=== PATIENT | female | born 1955 | race Caucasian/White ===

== ENCOUNTER 2022-06-25 11:24 | Inpatient (IN) ==
--- NOTE | 2022-06-25 12:49 | XRay Report ---
XR chest 2V PA/lateral HISTORY: Shortness of breath. COMPARISON: Chest 10/18/2011. FINDINGS: The lungs are clear. Cardiac silhouette is normal in size. No pleural effusions. No pneumot horax. Prior cholecystectomy. IMPRESSION: No acute process. ACT 112: Negative or not required by law. Electronically signed by: Yves Nolasco M.D. 06/25/2022 12:47 PM
--- NOTE | 2022-06-25 13:00 | ED Triage Note ---
Date of Service June 25, 2022 History of Present Illness This patient was briefly evaluated while in triage. An abbreviated physical exam was performed. This patient is a 66-year-old Female with past medical history of diabetes, COPD who presents to the ED for evaluation of abdominal pain, back and flank pain. Her symptoms started about 3 to 4 days ago with a mid abdominal pain that radiated through to her back and wraps around to her right scapular region. She reports progressively worsening pain bilateral back pain now, with nausea. She states she has pain with movement, but also with deep breathing. She is tried icy hot patches. She rates her pain an 8/10. History of a tubal ligation. She does not have chest pain. She denies any urinary symptoms. Physical Exam GENERAL: Well-appearing albeit uncomfortable 66-year-old female seated in a wheelchair. CARDIOVASCULAR: RRR RESPIRATORY: Inspiratory and expiratory wheezes noted throughout. No accessory muscle use or retraction. ABDOMEN: BS x 4. Mildly tender to palpation throughout, no focal tenderness however. BACK: No skin rashes, ecchymosis or signs of trauma. She has reproducible tenderness to palpation of the lumbar spine in the midline, and in the right scapular region. Initial orders for labs and / or imaging were placed and patient was placed in the waiting area until a bed is available. Please see further documentation for the full ED course.
[2022-06-25] MEDS ORDERED: SODIUM CHLORIDE 0.9% 1000ML 1,000 ML IV SCH ×2 (13:01→18:40)
[2022-06-25 13:32] LABS: Basophils # (auto) 0.07 K/uL (0-0.2); Basophils % (auto) 0.4 %; Eosinophils # (auto) 0.02 K/uL (0-0.50); Eosinophils % (auto) 0.1 %; Hematocrit (blood only) 43.7 % (37.0-47.0); Hemoglobin 15.8 g/dl (12.0-16.0); Immature Granulocytes % (auto) 0.6 %; Lymphocytes # (auto) 1.99 K/uL (1.2-3.4); Lymphocytes % (auto) 11.2 %; Mean Corpuscular Hemoglobin 30.3 pg (25.0-34.0); Mean Corpuscular Hgb Conc 36.2 g/dL (32.0-36.0); Mean Corpuscular Volume 83.9 fL (80.0-100.0); Mean Platelet Volume 9.4 fL (9.4-12.4); Monocytes # (auto) 1.46 K/uL (0.11-0.59); Monocytes % (auto) 8.2 %; Neutrophils # (auto) 14.09 K/uL (1.40-6.50); Neutrophils % (auto) 79.5 %; Platelet Count 384 K/uL (130-400); RDW Coefficient of Variation 11.9 % (11.5-14.5); RDW Standard Deviation 36.1 fL (36.4-46.3); Red Blood Count 5.21 M/uL (4.20-5.40); White Blood Count 17.73 K/ul (4.8-10.8)
[2022-06-25 13:38] LABS: Appearance Urine Cloudy (Clear); Bacteria Urine Automated 4+ (Negative); Bilirubin Urine Negative (Negative); Blood Urine Trace (Negative); Cast Urine Automated 0 /lpf (0-5); Color Urine Yellow; Glucose Urine UA 3+ (Negative); Ketones Urine Trace (Negative); Leukocyte Esterase Urine Negative (Negative); Nitrite Urine Positive (Negative); Protein Urine Negative (Negative); RBC Urine Automated 0-4 /hpf (0-4); Specific Gravity Urine 1.045 (1.000-1.030); Urobilinogen Urine Negative (Negative); pH Urine 5.5 (4.5-7.5)
[2022-06-25 14:01] LABS: Albumin Globulin Ratio 1.2 (0.9-2); Albumin Level 3.9 gm/dl (3.4-5.0); BUN Creatinine Ratio 22.4 (10-20); Bilirubin,Total 0.7 mg/dl (0.2-1.0); Calcium 9.3 mg/dl (8.5-10.1); Creatinine Clr Calc Pharmacy 109.4 ml/min; Est GFR (Non-African American) 100.1 ml/min; Globulin 3.3 gm/dl (2.5-4.0); Potassium 3.9 mmol/L (3.5-5.1); Total Protein 7.2 gm/dl (6.0-8.3)
[2022-06-25] MEDS ORDERED: OPTIRAY 320 500ml IV ONE (14:32)
--- NOTE | 2022-06-25 14:38 | Electrocardiogram Report ---
Test Reason : Blood Pressure : / mmHG Vent. Rate : 087 BPM Atrial Rate : 087 BPM P-R Int : 126 ms QRS Dur : 124 ms QT Int : 418 ms P-R-T Axes : 033 -32 002 degrees QTc Int : 502 ms Poor data quality, interpretation may be adversely affected Normal sinus rhythm Left axis deviation Right bundle branch block Abnormal ECG When compared with ECG of 18-OCT-2011 08:39, Right bundle branch block is now Present Confirmed by Jose Rae ([id number]) on 06/25/2022 2:38:36 PM Referred By: Confirmed By:Jose Rae
[2022-06-25] MEDS ORDERED: ONDANSETRON INJ 2 MG/ML 2 ML VIAL IV STA (14:56)
[2022-06-25] MEDS ORDERED: SODIUM CHLORIDE 0.9% 1000ML 1,000 ML IV ONE (14:56)
[2022-06-25] MEDS ORDERED: MoRPHine SULFATE 10 MG/ML CARP/VIAL IV STA (14:56)
--- NOTE | 2022-06-25 15:01 | Emergency Department Note ---
Impression & Plan Urinary tract infection, Abdominal pain, Acute hyperglycemia ED Provider Note NAME: LONNY HOPE AGE: 66 SEX: F : 1955 ARRIVES VIA: Walk-In INFORMANT: Patient ED PROVIDER(S): Andres Danielle DO CHIEF COMPLAINT: right side pain HPI: Patient is a 66-year-old female who presents ER for severe right-sided pain. She notes it starts in her right upper back and goes the whole way down her back and comes across the right lower quadrant. She denies any dysuria urgency or frequency. No headache or change in vision. No chest pain. She is a diabetic and notes that her blood sugars have been running normally. The pain changes with every position even laying. She denies any weakness or numbness in the arms or legs. No other exacerbating or remitting factors. No fevers. Has been using lidocaine patches. PAST MEDICAL HISTORY:See Below PAST SURGICAL HISTORY:See Below FAMILY HISTORY:See Below SOCIAL HISTORY:See Below HOME MEDICATIONS:See Below ALLERGIES:See Below VITALS:See Below PHYSICAL EXAMINATION: GENERAL: Sitting up in bed, alert, well appearing, well nourished, no distress, non-toxic EYE EXAM: normal conjunctiva. OROPHARYNX: no exudate, no erythema, lips, buccal mucosa, and tongue normal and mucous membranes are moist NECK: supple, no nuchal rigidity, no adenopathy, non-tender LUNGS: Clear to auscultation. Normal chest wall mechanics HEART: no murmurs, S1 normal and S2 normal ABDOMEN: abdomen soft, non-tender, normo-active bowel sounds, no masses, no rebound or guarding. BACK: Back is symmetrical on inspection and there is no deformity, no midline tenderness, but acute reproducible tenderness even on light palpation throughout the mid right thoracic paraspinal region tracking all the way down to the right SI joint and coming across the right abdomen as well as the right chest UPPER EXTREMITIES: upper extremities are grossly normal. LOWER EXTREMITIES: No pitting edema. NEURO EXAM: Normal sensorium, cranial nerves II-XII grossly intact, normal speech, no gross weakness of arms, no gross weakness of legs. MEDICAL DECISION MAKING: Patient is a 58-year-old female who presents to the ER for severe right-sided chest and abdominal pain. Labs show a leukocytosis of 17,000. No significant anemia. BMP with a mild hyponatremia at 133. Glucose of 473. LFTs bilirubin was unremarkable. UA with nitrates whites and bacteria although contaminated do favor likely UTI. Was given 2 g Rocephin and IV fluids as well as IV narcotics. External records were reviewed which include EKGs. CT angio of the chest as well as abdomen pelvis showed chronic malrotation. Chest x-ray was unremarkable. Patient was given IV fluids and narcotics and updated at bedside. Discussed the hospitalist for further evaluation. Blood sugar trend down to 200s. Triage Nursing notes reviewed. Limited review of prior medical records performed Vital Signs: reviewed and remarkable for no significant abnormalities Differential diagnosis: Cardiac ischemia, aortic dissection, pulmonary embolism, pneumothorax, pneumonia, pericarditis, myocarditis, esophageal rupture, GERD, cholecystitis, pancreatitis, musculoskeletal, as well as other pathologies. ER treatment provided: See below Diagnostics interpreted by me include EKG and cardiac monitoring as listed below: -Cardiac Monitoring: An order was placed for continuous cardiac monitoring. The monitor shows a rate of 90 with sinus rhythm. -ECG: Sinus rhythm rate 87 Left axis Right bundle branch block T wave inversions V4 QTC 502 Bundle branch block is new in comparison to previous in 2012 -Laboratory studies:Interpreted by me as stated above in MDM and shown below. Imaging studies: Xrays: As interpreted by me: Portable AP upright 1 view of the chest unremarkable CTs show: CT abdomen pelvis and chest was unremarkable Consultation(s): Discussed with Dr. Roa for further evaluation Procedures:none Critical Care: None Past Med/Surg History Medical History (Updated 06/25/22 @ 21:00 by Andres Danielle DO) Pneumococcal pneumonia Surgical History (Updated 06/25/22 @ 17:07 by Hiren Roa MD) History of endometrial ablation S/P lumpectomy, left breast Social History Smoking Status: Current every day smoker Hx Alcohol Use: No Hx Substance Use: No Preferred Language: Chinese Communication Ability: Effective Pig Breeder Required: No Beliefs That Will Affect Care: None Current Living Situation: Alone Feels Safe at Home: Yes Assistive Devices: Glasses Allergies Allergies Allergy/AdvReac Type Severity Reaction Status Date / Time citalopram Allergy Mild Unknown Verified 06/25/22 16:39 quetiapine Allergy Mild Unknown Verified 06/25/22 16:39 latex Allergy Unknown TO POWDER Verified 10/20/11 08:06 W/ LATEX, JAK. NON-LATEX FREE IV'S [id number] pine nut Allergy Unknown "evergreen Verified 06/25/22 16:40 sap" allergy venlafaxine Allergy Unknown Unknown Verified 06/25/22 16:39 celecoxib Allergy _ Unverified 10/18/11 19:21 ibuprofen Allergy "ABD Verified 10/18/11 08:32 DISTRESS" salmon oil Allergy ANAPHYLAXIS Verified 10/18/11 08:32 Home Meds Home Medications Medication Instructions Recorded Confirmed Unobtainable 06/25/22 06/25/22 Results & Data (ED) Vital Signs Vital Signs - 24 hr 06/25/22 11:52 06/25/22 15:14 Temperature 37 C Temperature Source Oral Pulse Rate 102 H Pulse Rate [Apical] 80 Respiratory Rate 18 18 Respiratory Effort / Characteristics Non-Labored Spontaneous Respiratory Depth Normal Respiratory Pattern Regular Blood Pressure 167/73 H Blood Pressure [Right Arm] 154/102 H Blood Pressure Mean 104 Blood Pressure Mean [Right Arm] 119 Blood Pressure Position [Right Arm] Sitting Pulse Oximetry 96 97 Oxygen Delivery Method Room Air Room Air Sepsis Recent Fever Within 48 Hours No Sepsis New/Unexplained Change in Mental Status No Sepsis Action Taken by Nursing No Action Required Laboratory Data 06/25/22 12:55 06/25/22 12:55 Lab Results 06/25/22 06/25/22 06/25/22 Range/Units 12:55 12:55 15:23 WBC 17.73 H (4.8-10.8) K/ul RBC 5.21 (4.20-5.40) M/uL Hgb 15.8 (12.0-16.0) g/dl Hct 43.7 (37.0-47.0) % MCV 83.9 (80.0-100.0) fL MCH 30.3 (25.0-34.0) pg MCHC 36.2 H (32.0-36.0) g/dL RDW Std Deviation 36.1 L (36.4-46.3) fL RDW Coeff of Nery 11.9 (11.5-14.5) % Plt Count 384 (130-400) K/uL MPV 9.4 (9.4-12.4) fL Immature Gran % (Auto) 0.6 % Neut % (Auto) 79.5 % Lymph % (Auto) 11.2 % Durham % (Auto) 8.2 % Eos % (Auto) 0.1 % Baso % (Auto) 0.4 % Neut # (Auto) 14.09 H (1.40-6.50) K/uL Lymph # (Auto) 1.99 (1.2-3.4) K/uL Durham # (Auto) 1.46 H (0.11-0.59) K/uL Eos # (Auto) 0.02 (0-0.50) K/uL Baso # (Auto) 0.07 (0-0.2) K/uL Immature Gran # (Auto) 0.10 (0.01-0.20) K/uL Sodium 133 L (136-145) mmol/L Potassium 3.9 (3.5-5.1) mmol/L Chloride 98 (98-107) mmol/L Carbon Dioxide 25 (21-32) mmol/L Anion Gap 10 (3-11) BUN 11 (6-23) mg/dl Creatinine 0.49 L (0.6-1.2) mg/dl Est Cr Clr Drug Dosing 109.4 ml/min Est GFR ( Amer) 116.0 ml/min Est GFR (Non-Af Amer) 100.1 ml/min BUN/Creatinine Ratio 22.4 H (10-20) Glucose 473 H* (70-99(Fasting)) mg/dl POC Glucose 388 H* (70-99) mg/dl Calcium 9.3 (8.5-10.1) mg/dl Total Bilirubin 0.7 (0.2-1.0) mg/dl AST 8 L (13-39) U/L ALT 15 (7-52) U/L Alkaline Phosphatase 159 H (34-104) U/L Total Protein 7.2 (6.0-8.3) gm/dl Albumin 3.9 (3.4-5.0) gm/dl Globulin 3.3 (2.5-4.0) gm/dl Albumin/Globulin Ratio 1.2 (0.9-2) SARS-CoV-2, RNA, NAAT (NEGATIVE) 06/25/22 Range/Units 16:15 WBC (4.8-10.8) K/ul RBC (4.20-5.40) M/uL Hgb (12.0-16.0) g/dl Hct (37.0-47.0) % MCV (80.0-100.0) fL MCH (25.0-34.0) pg MCHC (32.0-36.0) g/dL RDW Std Deviation (36.4-46.3) fL RDW Coeff of Nery (11.5-14.5) % Plt Count (130-400) K/uL MPV (9.4-12.4) fL Immature Gran % (Auto) % Neut % (Auto) % Lymph % (Auto) % Durham % (Auto) % Eos % (Auto) % Baso % (Auto) % Neut # (Auto) (1.40-6.50) K/uL Lymph # (Auto) (1.2-3.4) K/uL Durham # (Auto) (0.11-0.59) K/uL Eos # (Auto) (0-0.50) K/uL Baso # (Auto) (0-0.2) K/uL Immature Gran # (Auto) (0.01-0.20) K/uL Sodium (136-145) mmol/L Potassium (3.5-5.1) mmol/L Chloride (98-107) mmol/L Carbon Dioxide (21-32) mmol/L Anion Gap (3-11) BUN (6-23) mg/dl Creatinine (0.6-1.2) mg/dl Est Cr Clr Drug Dosing ml/min Est GFR ( Amer) ml/min Est GFR (Non-Af Amer) ml/min BUN/Creatinine Ratio (10-20) Glucose (70-99(Fasting)) mg/dl POC Glucose (70-99) mg/dl Calcium (8.5-10.1) mg/dl Total Bilirubin (0.2-1.0) mg/dl AST (13-39) U/L ALT (7-52) U/L Alkaline Phosphatase (34-104) U/L Total Protein (6.0-8.3) gm/dl Albumin (3.4-5.0) gm/dl Globulin (2.5-4.0) gm/dl Albumin/Globulin Ratio (0.9-2) SARS-CoV-2, RNA, NAAT NEGATIVE (NEGATIVE) Administered Medications Enoxaparin Sodium (Enoxaparin Inj 40 Mg/0.4 Ml Syr) 40 mg SQ Q24H [facility] Stop: 07/25/22 19:14 Last Admin: 06/25/22 19:53 Dose: 40 mg Documented By: Sodium Chloride (Nss 1000ml) 1,000 mls @ 100 mls/hr IV .Q10H [facility] Stop: 06/26/22 04:39 Last Admin: 06/25/22 18:46 Dose: 100 mls/hr Documented By: DEVIN Insulin Aspart (Insulin Aspart Per Unit) 0 units SC ACHS [facility] Stop: 07/25/22 18:39 Last Admin: 06/25/22 19:04 Dose: 6 units Documented By: DEVIN Co-signed By: SHRAVAN Oxycodone HCl (Oxycodone Hcl Ir 5 Mg Tab (Immediate Release)) 10 mg PO Q6H PRN PRN Reason: Moderate Pain 4-10/31 Stop: 07/09/22 18:39 Last Admin: 06/25/22 19:32 Dose: 10 mg Documented By: Discontinued Medications Sodium Chloride (Nss 1000ml) 1,000 mls @ 999 mls/hr IV .Q1H1M [facility] Stop: 06/25/22 14:01 Last Admin: 06/25/22 15:15 Dose: Not Given Documented By: MARLENEK Sodium Chloride (Nss 1000ml) 1,000 mls @ 999 mls/hr IV .Q1H1M ONE Stop: 06/25/22 15:56 Last Infusion: 06/25/22 16:18 Dose: 0 mls/hr Documented By: Admin: 06/25/22 15:11 Dose: 999 mls/hr Documented By: MARLENEK Ceftriaxone Sodium (Rocephin) 2,000 mg in 70 mls @ 140 mls/hr IV NOW STA Stop: 06/25/22 16:05 Last Infusion: 06/25/22 16:19 Dose: 0 mls/hr Documented By: Admin: 06/25/22 15:50 Dose: 140 mls/hr Documented By: MARLENEK Insulin Human Regular (Novolin-R Insulin Per Unit Charge) 8 units IV NOW STA Stop: 06/25/22 15:37 Last Admin: 06/25/22 15:52 Dose: 8 units Documented By: JUAN PABLO Co-signed By: ANAI Ioversol (Optiray 320 500ml) 95 ml IV ONCE ONE Stop: 06/25/22 14:33 Last Admin: 06/25/22 14:37 Dose: 95 ml Documented By: COLTON Morphine Sulfate (Morphine Sulfate 10 Mg/Ml Carp/Vial) 6 mg IV NOW STA Stop: 06/25/22 14:57 Last Admin: 06/25/22 15:11 Dose: 6 mg Documented By: CGK Ondansetron HCl (Ondansetron Inj 2 Mg/Ml 2 Ml Vial) 4 mg IV NOW STA Stop: 06/25/22 14:57 Last Admin: 06/25/22 15:11 Dose: 4 mg Documented By: CGK Polyethylene Glycol (Polyethylene (Miralax) 17 Gm Pack) 17 gm PO ONE STA Stop: 06/25/22 16:39 Last Admin: 06/25/22 16:46 Dose: 17 gm Documented By: CGK Imaging Data Radiologist's Impression: Chest X-Ray 06/25/22 11:56 XR chest 2V PA/lateral HISTORY: Shortness of breath. COMPARISON: Chest 10/18/2011. FINDINGS: The lungs are clear. Cardiac silhouette is normal in size. No pleural effusions. No pneumothorax. Prior cholecystectomy. IMPRESSION: No acute process. ACT 112: Negative or not required by law. Electronically signed by: Yves Nolasco M.D. 06/25/2022 12:47 PM Abdomen/Pelvis CT 06/25/22 13:00 CT OF THE ABDOMEN AND PELVIS WITH CONTRAST CLINICAL HISTORY: Abdominal and flank pain. COMPARISON STUDY: Right upper quadrant ultrasound October 18, 2011 and MRCP October 19, 2011. CT of the chest, abdomen and pelvis September 28, 2007 TECHNIQUE: Following IV administration of 95 mL of Optiray, axial images of the abdomen and pelvis were obtained from the lung bases to the proximal femurs. Images were reviewed in the axial, sagittal, and coronal planes. IV contrast was administered without complication. Automated exposure control was utilized for the study. A dose lowering technique was utilized adhering to the principles of ALARA. FINDINGS: No pneumatosis, free air or portal venous gas is present. There is no biliary ductal dilatation status post cholecystectomy. There are no suspicious hepatic lesions. Spleen and pancreas are unremarkable. Bilateral adrenal nodules measure up to 1.8 cm. These nodules have increased in size since prior MRCP. These are likely benign. There is no hydronephrosis. There are no ureteral calculi. 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 However, there is no evidence for a bowel obstruction. The appendix is normal. Caliber and wall thickness of small and large bowel are normal. There is no ascites or lymphadenopathy. There are no acute fractures. IMPRESSION: 1. No acute process within the abdomen or pelvis. 2. Findings suggestive of incomplete bowel malrotation. No evidence for a bowel obstruction. 3. No hydronephrosis. No ureteral calculi. 4. Bilateral adrenal nodules which are likely benign. ACT 112: Negative or not required by law. Electronically signed by: Prasanth Mcpherson M.D. 06/25/2022 3:14 PM Chest CTA 06/25/22 13:00 CT ANGIOGRAM OF THE CHEST CLINICAL HISTORY: Dyspnea. Thoracic back pain. COMPARISON STUDY: Chest x-ray dated 06/25/2022. Chest CT dated 10/27/2007. TECHNIQUE: Following the IV administration of 95 cc of Optiray 320, CT angiogram of the chest was performed from the upper abdomen to the thoracic inlet utilizing the pulmonary embolus protocol. Images are reviewed in the axial, sagittal, and coronal planes. 3-D MIPS images are created and assessed. IV contrast was administered without complication. A dose lowering technique was utilized adhering to the principles of ALARA. CT DOSE: 1526.16 mGycm FINDINGS: Thyroid: Imaged portions of the thyroid gland are normal in size and attenuation. Thoracic aorta: There is atherosclerotic calcification of the thoracic aorta, which is normal in caliber and demonstrates standard 3-vessel arch anatomy. No dissection is seen. Pulmonary vasculature: The pulmonary trunk is normal in caliber. There are no filling defects identified in main, lobar, or segmental pulmonary branches to suggest pulmonary embolus. Heart: The heart is normal in size and without pericardial effusion. Lungs and pleural spaces: Evaluation of the lung parenchyma is degraded by motion artifact. There is no airspace consolidation or pleural effusion. Scarring/atelectasis is noted at the lung bases. The trachea and central airways are clear. A 3 mm right apical nodule seen on image #222 is unchanged dating back to 2007 and of doubtful significance. Mediastinum: There is no mediastinal lymphadenopathy. Jenelle: Clear. Axillae: There is no axillary lymphadenopathy. Upper abdomen: Cholecystectomy clips are noted. There is a small hiatal hernia. Bilateral low-attenuation adrenal nodules measure up to 2 cm. These likely represent adenomas but cannot be definitively characterized due to the presence of IV contrast Skeletal structures: The skeletal structures are osteopenic. No lytic or blastic bony lesions are seen. Degenerative change is noted in the thoracic spine. IMPRESSION: 1. There is no evidence of pulmonary embolus in the main, lobar, or segmental pulmonary arteries. 2. There is no airspace consolidation or pleural effusion. 3. Coronary artery calcifications. 4. Additional findings as above. ACT 112: Negative or not required by law. Electronically signed by: Shay Sanders M.D. 06/25/2022 3:02 PM Discharge Plan Visit Data Chief Complaint: Pain (Generalized) Stated Complaint: R SHOULDER BLADE TO BELLY IN PAIN IN ALL POSITIONS ED Provider: Andres Danielle Discharge Problem: Urinary tract infection, Abdominal pain, Acute hyperglycemia Patient Disposition: Admitted As Inpatient Discharge Instructions Interventions: ED Discharge Assessment Last Done: 06/25/22 19:13
--- NOTE | 2022-06-25 15:03 | CT Scan Report ---
CT ANGIOGRAM OF THE CHEST CLINICAL HISTORY: Dyspnea. Thoracic back pain. COMPARISON STUDY: Chest x-ray dated 06/25/2022. Chest CT dated 10/27/2007. TECHNIQUE: Following the IV administration of 95 cc of Optiray 320, CT angiogram of the chest was per formed from the upper abdomen to the thoracic inlet utilizing the pulmonary embolus protocol. Images are reviewed in the axial, sagittal, and coronal planes. 3-D MIPS images are created and assessed. IV contrast was administered without complication. A dose lowering technique was utilized adhering to the principles of ALARA. CT DOSE: 1526.16 mGycm FINDINGS: Thyroid: Imaged portions of the thyroid gland are normal in size and attenuation. Thoracic aorta: There is atherosclerotic calcification of the thoracic aorta, which is normal in jose ladonna and demonstrates standard 3-vessel arch anatomy. No dissection is seen. Pulmonary vasculature: The pulmonary trunk is normal in caliber. There are no filling defects identif ied in main, lobar, or segmental pulmonary branches to suggest pulmonary embolus. Heart: The heart is normal in size and without pericardial effusion. Lungs and pleural spaces: Evaluation of the lung parenchyma is degraded by motion artifact. There is no airspace consolidation or pleural effusion. Scarring/atelectasis is noted at the lung bases. The t rachea and central airways are clear. A 3 mm right apical nodule seen on image #222 is unchanged dati ng back to 2007 and of doubtful significance. Mediastinum: There is no mediastinal lymphadenopathy. Jenelle: Clear. Axillae: There is no axillary lymphadenopathy. Upper abdomen: Cholecystectomy clips are noted. There is a small hiatal hernia. Bilateral low-attenua tion adrenal nodules measure up to 2 cm. These likely represent adenomas but cannot be definitively c haracterized due to the presence of IV contrast Skeletal structures: The skeletal structures are osteopenic. No lytic or blastic bony lesions are see n. Degenerative change is noted in the thoracic spine. IMPRESSION: 1. There is no evidence of pulmonary embolus in the main, lobar, or segmental pulmonary arteries. 2. There is no airspace consolidation or pleural effusion. 3. Coronary artery calcifications. 4. Additional findings as above. ACT 112: Negative or not required by law. Electronically signed by: Shay Sanders M.D. 06/25/2022 3:02 PM
--- NOTE | 2022-06-25 15:16 | CT Scan Report ---
CT OF THE ABDOMEN AND PELVIS WITH CONTRAST CLINICAL HISTORY: Abdominal and flank pain. COMPARISON STUDY: Right upper quadrant ultrasound October 18, 2011 and MRCP October 19, 2011. CT of the [facility] t, abdomen and pelvis September 28, 2007 TECHNIQUE: Following IV administration of 95 mL of Optiray, axial images of the abdomen and pelvis we re obtained from the lung bases to the proximal femurs. Images were reviewed in the axial, sagittal, and coronal planes. IV contrast was administered without complication. Automated exposure control wa s utilized for the study. A dose lowering technique was utilized adhering to the principles of ALARA . FINDINGS: No pneumatosis, free air or portal venous gas is present. There is no biliary ductal dilata tion status post cholecystectomy. There are no suspicious hepatic lesions. Spleen and pancreas are un remarkable. Bilateral adrenal nodules measure up to 1.8 cm. These nodules have increased in size sinc e prior MRCP. These are likely benign. There is no hydronephrosis. There are no ureteral calculi. 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 However, there is no evidence for a bowel obstruction. The appendix is normal. Caliber and wall thickness of small and large bowel are normal. There is no ascites or lymphadenopathy. There are no acute fractures. IMPRESSION: 1. No acute process within the abdomen or pelvis. 2. Findings suggestive of incomplete bowel malrotation. No evidence for a bowel obstruction. 3. No hydronephrosis. No ureteral calculi. 4. Bilateral adrenal nodules which are likely benign. ACT 112: Negative or not required by law. Electronically signed by: Prasanth Mcpherson M.D. 06/25/2022 3:14 PM
[2022-06-25] MEDS ORDERED: cefTRIAXone SODIUM 2,000 MG/70 ML BAG IV STA (15:36)
[2022-06-25] MEDS ORDERED: NovoLIN-R INSULIN PER UNIT CHARGE IV STA (15:36)
[2022-06-25] MEDS ORDERED: POLYETHYLENE (MIRALAX) 17 GM PACK PO STA (16:38)
--- NOTE | 2022-06-25 17:11 | History & Physical Report ---
Date of Service June 25, 2022 Assessment & Plan (1) Abdominal pain: Plan: Acute abdominal pain of undetermined risk the patient likely at least moderate risk. Malrotation noted on CT scan could possibly be pain from partial small bowel obstruction Concern could be the initiation of shingles with not yet having surface eruption Patient requiring parenteral opiate pain control Will be hydrated with IV fluids Incidental adrenal nodules are noted on CT scan these will likely need to be followed up. Patient will need to have reconnection with her primary care provider at time of discharge (2) Urinary tract infection: Plan: Acute with moderate risk the patient. Patient is diabetic likely at risk for infections. States had a serious urinary tract infection in her past. Urine culture pending, blood cultures were not sent (3) Diabetes: Plan: Acute uncontrolled diabetes of serious concern Patient's history is not consistent with her clinical presentation she cannot recall the name of her medication basal bolus insulin with acute monitoring for hypoglycemia since we are unsure of our starting point Hemoglobins A1c ordered for the morning Plan Patient is a full code Lovenox for DVT prevention I interviewed the patient in front of her daughter. She provided additional health history information. History of Present Illness Primary Care Provider: Sravanthi Cornell MD 66-year-old female has not seen a healthcare provider for many years presents with back pain radiating to her left upper abdomen, leukocytosis, abnormal urinalysis consistent with UTI present on admission uncontrolled diabetes. Patient's history is very varied and not making quite sense. We checked the pharmacy she states she uses for diabetic and migraine medications they have no record of her. She is not seen any healthcare provider in our system since 2011 although she and lists [facility] as her primary care provider. She had scanning including chest abdomen pelvis CT scan and a chest x-ray which did not support any physical means for her radicular pain. Certainly she has some mild skin changes which could be from a heating pad but were keeping surveillance for possible shingles. Patient states her blood glucose is usually 1 20-1 40 but cannot be defined and exactly how she checks this. She has a blood glucose of 473 on admission. She states she has diabetic retinopathy cannot be clear whether she had laser treatment to her retina. She states she is on an insulin pill but that she is allergic to metformin and Rybelsus as she is taking a migraine pill on Sundays which helps take care of her tension migraines Allergies Allergy/AdvReac Type Severity Reaction Status Date / Time citalopram Allergy Mild Unknown Verified 06/25/22 16:39 quetiapine Allergy Mild Unknown Verified 06/25/22 16:39 latex Allergy Unknown TO POWDER Verified 10/20/11 08:06 W/ LATEX, JAK. NON-LATEX FREE IV'S [id number] pine nut Allergy Unknown "evergreen Verified 06/25/22 16:40 sap" allergy venlafaxine Allergy Unknown Unknown Verified 06/25/22 16:39 celecoxib Allergy _ Unverified 10/18/11 19:21 ibuprofen Allergy "ABD Verified 10/18/11 08:32 DISTRESS" salmon oil Allergy ANAPHYLAXIS Verified 10/18/11 08:32 Home Medications Medication Instructions Recorded Confirmed Type Unobtainable 06/25/22 06/25/22 History Past Med/Surg History Medical History (Updated 06/25/22 @ 17:07 by Hiren Roa MD) Pneumococcal pneumonia Surgical History (Updated 06/25/22 @ 17:07 by Hiren Roa MD) History of endometrial ablation S/P lumpectomy, left breast Social History Smoking Status: Current every day smoker Feels Safe at Home: Yes Physical Exam Physical Exam: Patient is awake alert appropriate has difficulty moving about due to her back pain. The back pain is mechanical and positional radiates from her mid back probably lower thoracic circumferentially around her left side to her abdomen. Her abdomen is tender to examination it is slightly protuberant it is tympany to percussion there is no rebound or guarding. Cardiac exam is regular there is a slight systolic murmur at right upper sternal border her lungs otherwise are clear Extremities are without edema there is good distal peripheral pulses in both dorsalis pedis and radial pulses Results & Data Results & Data ([facility]) Vital Signs (Past 12 Hours) Vital Signs Temp Pulse Pulse Resp BP BP Pulse Ox 06/25/22 16:49 92 H 20 127/74 95 06/25/22 15:14 80 18 154/102 H 97 06/25/22 11:52 98.6 F 102 H 18 167/73 H 96 O2 Del Method 06/25/22 16:49 Room Air 06/25/22 15:14 Room Air 06/25/22 11:52 Room Air Laboratory Results Reviewed CBC Reviewed PRP Reviewed LFTs Reviewed urinalysis Diagnostic Findings Chest X-Ray 06/25/22 11:56 XR chest 2V PA/lateral HISTORY: Shortness of breath. COMPARISON: Chest 10/18/2011. FINDINGS: The lungs are clear. Cardiac silhouette is normal in size. No pleural effusions. No pneumothorax. Prior cholecystectomy. IMPRESSION: No acute process. Electronically signed by: Yves Nolasco M.D. 06/25/2022 12:47 PM Abdomen/Pelvis CT 06/25/22 13:00 CT OF THE ABDOMEN AND PELVIS WITH CONTRAST CLINICAL HISTORY: Abdominal and flank pain. COMPARISON STUDY: Right upper quadrant ultrasound October 18, 2011 and MRCP October 19, 2011. CT of the chest, abdomen and pelvis September 28, 2007 TECHNIQUE: Following IV administration of 95 mL of Optiray, axial images of the abdomen and pelvis were obtained from the lung bases to the proximal femurs. Images were reviewed in the axial, sagittal, and coronal planes. IV contrast was administered without complication. Automated exposure control was utilized for the study. A dose lowering technique was utilized adhering to the principles of ALARA. FINDINGS: No pneumatosis, free air or portal venous gas is present. There is no biliary ductal dilatation status post cholecystectomy. There are no suspicious hepatic lesions. Spleen and pancreas are unremarkable. Bilateral adrenal nodules measure up to 1.8 cm. These nodules have increased in size since prior MRCP. These are likely benign. There is no hydronephrosis. There are no ureteral calculi. 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 However, there is no evidence for a bowel obstruction. The appendix is normal. Caliber and wall thickness of small and large bowel are normal. There is no ascites or lymphadenopathy. There are no acute fractures. IMPRESSION: 1. No acute process within the abdomen or pelvis. 2. Findings suggestive of incomplete bowel malrotation. No evidence for a bowel obstruction. 3. No hydronephrosis. No ureteral calculi. 4. Bilateral adrenal nodules which are likely benign. Electronically signed by: Prasanth Mcpherson M.D. 06/25/2022 3:14 PM Chest CTA 06/25/22 13:00 CT ANGIOGRAM OF THE CHEST CLINICAL HISTORY: Dyspnea. Thoracic back pain. COMPARISON STUDY: Chest x-ray dated 06/25/2022. Chest CT dated 10/27/2007. TECHNIQUE: Following the IV administration of 95 cc of Optiray 320, CT angiogram of the chest was performed from the upper abdomen to the thoracic inlet utilizing the pulmonary embolus protocol. Images are reviewed in the axial, sagittal, and coronal planes. 3-D MIPS images are created and assessed. IV contrast was administered without complication. A dose lowering technique was utilized adhering to the principles of ALARA. CT DOSE: 1526.16 mGycm FINDINGS: Thyroid: Imaged portions of the thyroid gland are normal in size and attenuation. Thoracic aorta: There is atherosclerotic calcification of the thoracic aorta, which is normal in caliber and demonstrates standard 3-vessel arch anatomy. No dissection is seen. Pulmonary vasculature: The pulmonary trunk is normal in caliber. There are no filling defects identified in main, lobar, or segmental pulmonary branches to suggest pulmonary embolus. Heart: The heart is normal in size and without pericardial effusion. Lungs and pleural spaces: Evaluation of the lung parenchyma is degraded by motion artifact. There is no airspace consolidation or pleural effusion. Scarring/atelectasis is noted at the lung bases. The trachea and central airways are clear. A 3 mm right apical nodule seen on image #222 is unchanged dating back to 2007 and of doubtful significance. Mediastinum: There is no mediastinal lymphadenopathy. Jenelle: Clear. Axillae: There is no axillary lymphadenopathy. Upper abdomen: Cholecystectomy clips are noted. There is a small hiatal hernia. Bilateral low-attenuation adrenal nodules measure up to 2 cm. These likely represent adenomas but cannot be definitively characterized due to the presence of IV contrast Skeletal structures: The skeletal structures are osteopenic. No lytic or blastic bony lesions are seen. Degenerative change is noted in the thoracic spine. IMPRESSION: 1. There is no evidence of pulmonary embolus in the main, lobar, or segmental pulmonary arteries. 2. There is no airspace consolidation or pleural effusion. 3. Coronary artery calcifications. 4. Additional findings as above. Electronically signed by: Shay Sanders M.D. 06/25/2022 3:02 PM ECG Additional Comments: Normal sinus rhythm right bundle branch block Code Status & VTE Plan VTE Prophylaxis Plan VTE Prophylaxis will be ordered: Yes PG Care Time/CCT Total # of Minutes Spent Total Time Spent with Patient: Total time spent is greater than 50% in coordination of care (as documented) at patient's floor/unit and/or counseling patient: Coding Level of Care Code 14591 INT INP/OBS CARE 3/75MIN Diagnoses Abdominal pain R10.9 Urinary tract infection N39.0 Diabetes E11.9
[2022-06-25] MEDS ORDERED: GLUCAGON FOR INJ 1 MG VIAL SQ PRN (18:40)
[2022-06-25] MEDS ORDERED: POLYETHYLENE (MIRALAX) 17 GM PACK PO PRN (18:40)
[2022-06-25] MEDS ORDERED: CARBOHYDRATES FOR HYPOGLYCEMIA PO PRN (18:40)
[2022-06-25] MEDS ORDERED: DEXTROSE 50% 50 ML SYRINGE IV PRN (18:40)
[2022-06-25] MEDS ORDERED: ONDANSETRON INJ 2 MG/ML 2 ML VIAL IV PRN (18:40)
[2022-06-25] MEDS ORDERED: ALUMINUM/MAGNESIUM SUSP 30 ML UDC PO PRN (18:40)
[2022-06-25] MEDS ORDERED: GLUCOSE 40% GEL 15 GM TUBE PO PRN (18:40)
[2022-06-25] MEDS ORDERED: GLUCOSE 10 TAB/TUBE PO PRN (18:40)
[2022-06-25] MEDS: INSULIN ASPART PER UNIT SC SCH ×2 (19:04→21:18)
[2022-06-25] MEDS ORDERED: ACETAMINOPHEN 325 MG TAB PO PRN (19:08)
[2022-06-25] MEDS: oxyCODONE HCL IR 5 MG TAB (IMMEDIATE RELEASE) PO PRN (19:32)
[2022-06-25] MEDS: ENOXAPARIN INJ 40 MG/0.4 ML SYR SQ SCH (19:53)
[2022-06-25] MEDS: LANTUS PER UNIT CHARGE SQ SCH (21:18)
[2022-06-25] MEDS: MoRPHine SULFATE 4 MG/ML 1 ML CARP\\VIAL IV PRN (21:23)
[2022-06-26] MEDS: MoRPHine SULFATE 4 MG/ML 1 ML CARP\\VIAL IV PRN (05:22)
--- NOTE | 2022-06-26 07:22 | Hospitalist Progress Note ---
Date of Service June 26, 2022 Assessment & Plan (1) Abdominal pain: Plan: Acute abdominal pain of undetermined risk abdominal pain is less and replaced mostly by mechanical back pain. Malrotation noted on CT scan could possibly be pain from partial small bowel obstruction or constipation we will assure increased bowel productivity Patient requiring parenteral opiate pain control Will be hydrated with IV fluids stop IV hydration and 06/26/2022 Incidental adrenal nodules are noted on CT scan these will likely need to be followed up. Patient will need to have reconnection with her primary care provider at time of discharge (2) Urinary tract infection: Plan: Acute with moderate risk the patient. Patient is diabetic likely at risk for infections. States had a serious urinary tract infection in her past. Urine culture pending, blood cultures were not sent Preliminary culture results with gram-negative urinary tract infection continues on parenteral ceftriaxone (3) Diabetes: Plan: Acute uncontrolled diabetes of serious risk the patient with known endorgan damage of retinopathy Patient's history is not consistent with her clinical presentation she cannot recall the name of her medication basal bolus insulin with acute monitoring for hypoglycemia since we are unsure of our starting point Hemoglobins A1c of 13 suggest outpatient compliance problems or poor treatment healthcare educator provided bedside instruction Plan Patient is a full code Lovenox for DVT prevention Physical therapy evaluation for acute on chronic mechanical back pain and functional status Admission and Anticipated Discharge Date Admission Date: June 25, 2022 Subjective Pt is still with some back pain, no evidence of shingles, she still has a cloudy background about who may have been supplying her medical care her hb a1c is 13, now on basal bolus insulin, was seen by museum educator Physical Exam Physical Exam: Patient is awake alert still with mechanical back pain and radicular around her left side to her abdomen. No evidence of rashes or shingles. Urine infection preliminaries gram-negative. Glucose is better controlled but not complete controlled Results & Data Results & Data ([facility]) Vital Signs (Past 12 Hours) Vital Signs Temp Pulse Resp BP Pulse Ox O2 Del Method 06/26/22 02:30 99.3 F 93 H 18 134/75 95 Room Air 06/25/22 20:58 98.6 F 102 H 16 116/69 93 Room Air Diagnostic Findings Hemoglobin A1c reviewed at CBC reviewed Chemistry panel also reviewed PG Care Time/CCT Total # of Minutes Spent Total Time Spent with Patient: Total time spent is greater than 50% in coordination of care (as documented) at patient's floor/unit and/or counseling patient: Coding Level of Care Code 14893 SUB INP/OBS CARE 350MIN Diagnoses Abdominal pain R10.9 Urinary tract infection N39.0 Diabetes E11.9
[2022-06-26 07:34] LABS: Hematocrit (blood only) 38.3 % (37.0-47.0); Hemoglobin 13.3 g/dl (12.0-16.0); Mean Corpuscular Hemoglobin 30.4 pg (25.0-34.0); Mean Corpuscular Hgb Conc 34.7 g/dL (32.0-36.0); Mean Corpuscular Volume 87.6 fL (80.0-100.0); Mean Platelet Volume 9.3 fL (9.4-12.4); Platelet Count 326 K/uL (130-400); RDW Standard Deviation 38.5 fL (36.4-46.3); Red Blood Count 4.37 M/uL (4.20-5.40); White Blood Count 13.51 K/ul (4.8-10.8)
[2022-06-26] MEDS: oxyCODONE HCL IR 5 MG TAB (IMMEDIATE RELEASE) PO PRN ×3 (07:49→21:00)
[2022-06-26] MEDS: LANTUS PER UNIT CHARGE SQ SCH ×2 (08:44→20:50)
[2022-06-26] MEDS: INSULIN ASPART PER UNIT SC SCH ×4 (08:45→20:49)
[2022-06-26 08:53] LABS: Calcium 8.9 mg/dl (8.5-10.1); Creatinine Clr Calc Pharmacy 121.8 ml/min; Est GFR (African American) 120.2 ml/min; Est GFR (Non-African American) 103.7 ml/min; Potassium 3.6 mmol/L (3.5-5.1)
[2022-06-26 10:53] LABS: Estimated Average Glucose 329 mg/dl; Hemoglobin A1C 13.1 % (4.5-5.6)
[2022-06-26] MEDS: MoRPHine SULFATE 2 MG/ML CARP IV PRN ×2 (12:53→20:00)
[2022-06-26] MEDS: NICOTINE 21 MG/24 HR TDSY TD SCH (16:08)
[2022-06-26] MEDS: cefTRIAXone SODIUM 2,000 MG in DEXTROSE 5% 50 ML IV SCH (16:08)
[2022-06-26] MEDS ORDERED: POLYETHYLENE (MIRALAX) 17 GM PACK PO ONE (17:54)
[2022-06-26] MEDS: ENOXAPARIN INJ 40 MG/0.4 ML SYR SQ SCH (18:22)
[2022-06-27] MEDS: MoRPHine SULFATE 4 MG/ML 1 ML CARP\\VIAL IV PRN ×3 (02:14→19:17)
[2022-06-27] MEDS ORDERED: KETOROLAC TROMETHAMINE 15 MG/ML VIAL IV ONE (03:00)
[2022-06-27 03:11] LABS: Hemoglobin 14.3 g/dl (12.0-16.0); Mean Corpuscular Hemoglobin 30.2 pg (25.0-34.0); Mean Corpuscular Hgb Conc 34.9 g/dL (32.0-36.0); Mean Corpuscular Volume 86.7 fL (80.0-100.0); Mean Platelet Volume 8.8 fL (9.4-12.4); Platelet Count 357 K/uL (130-400); RDW Coefficient of Variation 11.9 % (11.5-14.5); RDW Standard Deviation 38.4 fL (36.4-46.3); Red Blood Count 4.73 M/uL (4.20-5.40)
[2022-06-27 03:33] LABS: BUN Creatinine Ratio 27.7 (10-20); Calcium 9.2 mg/dl (8.5-10.1); Est GFR (African American) 117.6 ml/min; Est GFR (Non-African American) 101.5 ml/min; Potassium 3.8 mmol/L (3.5-5.1)
--- NOTE | 2022-06-27 03:38 | Communication Note ---
Date of Service: June 27, 2022 At approximately 1400 hrs., nursing informing the patient is experiencing 10 out of 10 sudden onset abdominal pain while straining to take a bowel movement. She was given 4 mg of morphine with little to no improvement. Because of this I went and assessed the patient. Patient was sitting at the side of the bed bent over but was able to converse and describe her symptoms. Reports that during bearing down she felt a sharp pain that starts in her back and radiates forward to her abdomen on the same side. Not having any nausea or vomiting currently. No hematuria per nursing. No hematochezia. I personally reviewed her CT scan from her admission and noted the radiologist assessment of a partial, congenital malrotation without obstruction. Physical exam was revealing of sharp pain elicited with even the lightest touch of her skin especially on her back. There is no rash on the overlying skin nor erythema. Hypoactive bowel sounds. Soft abdomen with tenderness in the left upper quadrant to light palpation. No peritoneal signs noted. Plan: Given her CT findings from admission, HPI, and current symptoms, ordered stat lactate to evaluate for ischemic bowel. This returned within normal limits. This may just be an acute exacerbation of her undifferentiated pain and is currently being worked up. For this reason I ordered a one-time dose of Toradol and at reassessment 30 minutes later she reported an improvement in her pain from a 10 to a 9. Will recheck in an hour.
--- NOTE | 2022-06-27 08:26 | Hospitalist Progress Note ---
Date of Service June 27, 2022 Assessment & Plan (1) Abdominal pain: Plan: Acute abdominal pain is now resolved and replaced mostly by mechanical back pain. Malrotation noted on CT scan could possibly be pain from partial small bowel obstruction or constipation we will assure increased bowel productivity Patient requiring parenteral opiate pain control Will be hydrated with IV fluids stop IV hydration and 06/26/2022 Incidental adrenal nodules are noted on CT scan these will likely need to be followed up. Patient will need to have reconnection with her primary care provider at time of discharge Mechanical back pain evaluated by MRI of thoracic and lumbar spine. Arthritic changes are seen with some facet arthropathy at the lower with MRI thoracic spine on the left. We will check a sed rate to see if it is markedly elevated but most likely this is mechanical pain from arthritic change (2) Urinary tract infection: Plan: Acute with moderate risk the patient. Patient is diabetic likely at risk for infections. States had a serious urinary tract infection in her past. Cultures reveal E. coli sensitive to ceftriaxone continues on parenteral ceftriaxone will complete 5 days (3) Diabetes: Plan: Acute uncontrolled diabetes of serious risk the patient with known endorgan damage of retinopathy Patient's history is not consistent with her clinical presentation she cannot recall the name of her medication basal bolus insulin with acute monitoring for hypoglycemia since we are unsure of our starting point Hemoglobins A1c of 13 suggest outpatient compliance problems or poor treatment patient educator provided bedside instruction Plan Patient is a full code Lovenox for DVT prevention Physical therapy evaluation for acute on chronic mechanical back pain and functional status Admission and Anticipated Discharge Date Admission Date: June 26, 2022 Subjective Patient still with significant back pain radiating around her left side her abdomen. On examination her central spine is nontender this more seem to be paraspinous musculature. Significant challenges with diabetic management for this patient given her eyesight reduction Physical Exam Physical Exam: Awake alert patient looks improved this her blood pressure comes under control and her urinary tract infection is being treated. Cardiac exam is regular lungs are clear without wheezes or crackles Extremities show no decrease in motor strength or reflexes Results & Data Results & [facility] ([facility]) Vital Signs (Past 12 Hours) Vital Signs Temp Pulse Resp BP Pulse Ox O2 Del Method 06/27/22 07:42 97.9 F 80 18 116/67 94 Room Air 06/26/22 21:42 98.2 F 89 16 150/72 H 93 Room Air Laboratory Results Reviewed CBC Reviewed chemistry Urine culture results and E. coli that is resistant to penicillin but sensitive to ceftriaxone Ordering a sed rate for the morning to help determine if facet inflammation is arthritic versus infectious PG Care Time/CCT Total # of Minutes Spent Total Time Spent with Patient: Total time spent is greater than 50% in coordination of care (as documented) at patient's floor/unit and/or counseling patient: Coding Level of Care Code 39836 SUB INP/OBS CARE 2/35MIN Diagnoses Abdominal pain R10.9 Urinary tract infection N39.0 Diabetes E11.9
[2022-06-27] MEDS: NICOTINE 21 MG/24 HR TDSY TD SCH (08:41)
[2022-06-27] MEDS: POLYETHYLENE (MIRALAX) 17 GM PACK PO SCH (08:41)
[2022-06-27] MEDS: oxyCODONE HCL IR 5 MG TAB (IMMEDIATE RELEASE) PO PRN ×2 (08:44→14:47)
[2022-06-27] MEDS: INSULIN ASPART PER UNIT SC SCH ×4 (09:06→20:33)
[2022-06-27] MEDS: LANTUS PER UNIT CHARGE SQ SCH ×2 (09:06→20:34)
[2022-06-27] MEDS: cefTRIAXone SODIUM 2,000 MG in DEXTROSE 5% 50 ML IV SCH (15:44)
--- NOTE | 2022-06-27 16:35 | Magnetic Resonance Report ---
MR thoracic spine wo con, MR lumbar spine wo con HISTORY: 66 years-old Female lower thoracic pain with radiation, chronic mid to low back pain with r adicular symptoms. COMPARISON: CTA chest and CT abdomen and pelvis June 25, 2022, MRI lumbar spine 12/28/2007. TECHNIQUE: Multiplanar multisequence MRI of the thoracic and lumbar spine were obtained without the u se of IV contrast. FINDINGS: THORACIC: The imaged intrathoracic and paraspinal structures appear unremarkable. Motion degraded exam. Trace l ayering pleural effusions. Normal signal of the imaged cervical and thoracic spinal cord. There is mo derate deep tissue edema surrounding the left T10-T11 facet with extension to the paravertebral tissu es and left neural foramen. No fluid collection or discrete mass identified. Moderate marrow edema of the facets with trace facet effusion. There is mild to moderate multilevel intervertebral disc space narrowing of the thoracic spine with associated mild to moderate spondylitic spurring and moderate f acet arthrosis. Posterior annular disc bulging is noted at numerous levels. T6-T7: Left paracentral/left lateral recess disc protrusion without significant central canal or neur al foraminal narrowing. T7-T8: Right paracentral/right lateral recess mild disc protrusion. No central canal or neural forami nal narrowing. T10-T11: Posterior annular disc bulge with ligamentum flavum thickening and moderate to severe facet arthrosis. Mild to moderate central canal stenosis, AP dimension of the thecal sac measuring 8 mm. Mi ld right with moderate left neural foraminal narrowing. T11-T12: Degenerative partial bony fusion of the vertebral bodies. Mild bilateral foraminal narrowing . Central canal is patent. T12-L1: Moderate intervertebral disc space narrowing with spondylitic spurring and circumferential an nular disc bulge. Ligamentum flavum thickening with moderate to severe facet arthrosis. The central c anal is patent. Mild to moderate bilateral foraminal narrowing. LUMBAR: No acute fracture or subluxation. Conus medullaris terminates at L1. Normal signal within the imaged thoracic spinal cord and cauda equina. Moderate paravertebral/deep tissue edema on the right centered at T10-T11 as above. No marrow edema, acute fracture, or subluxation of the lumbar spine. Degenerati ve changes throughout the lumbar spine have mildly progressed from the prior study. L1-L2: Mild intervertebral disc space narrowing with spondylitic spurring. Circumferential annular di sc bulge with ligamentum flavum thickening and moderate facet arthrosis. The central canal is patent. Mild bilateral foraminal narrowing. L2-L3: [id number] intervertebral disc space narrowing with spondylitic spurring. Posterior adonay lar disc bulge. Ligamentum flavum thickening with moderate facet arthrosis. Mild to moderate central canal stenosis, AP dimension of the thecal sac measuring 8 mm. Mild right greater than left bilateral foraminal narrowing. L3-L4: Mild to moderate intervertebral disc space narrowing with spondylitic spurring. Small posterio r annular disc bulge. Ligamentum flavum thickening with moderate to severe facet arthrosis. Moderate to severe central canal stenosis, AP dimension of the thecal sac measuring 6 mm. Moderate to severe n arrowing of the lateral recesses. Moderate right with mild left neural foraminal narrowing. L4-L5: Mild intervertebral disc space narrowing with spondylitic spurring. Small posterior annular di sc bulge. Ligamentum flavum thickening with severe facet arthrosis. L5-S1: Moderate posterior intervertebral disc space narrowing with spondylitic spurring. Small circum ferential annular disc bulge. Left far lateral spondylitic spurring. Ligamentum flavum thickening wit h moderate to severe facet arthrosis. Central canal is patent. Mild right with moderate left neural f oraminal narrowing. IMPRESSION: 1. No acute fracture or subluxation identified within the thoracic or lumbar spine. 2. Moderate marrow edema of the left T10-T11 facets with moderate adjacent soft tissue edema extendin g into the paraspinal tissues is likely on a degenerative/reactive basis. Correlate with patient hist ory and clinical exam findings. 3. Discogenic degeneration with spondylitic spurring and facet arthrosis as above resulting in multil evel central canal and neural foraminal narrowing. ACT 112: Negative or not required by law. The above report was generated using voice recognition software. It may contain grammatical, syntax o r spelling errors. Dictated: 06/27/2022 2:12 PM Transcribed: 06/27/2022 4:11 PM [place] [id number] [email or web address] Electronically signed by: Naga Flower M.D. 06/27/2022 4:33 PM
[2022-06-27] MEDS: LIDOCAINE 5% 1 PATCH TD SCH (18:18)
[2022-06-27] MEDS: ENOXAPARIN INJ 40 MG/0.4 ML SYR SQ SCH (19:14)
[2022-06-27] MEDS: ACETAMINOPHEN 500 MG TAB PO SCH (20:29)
[2022-06-28] MEDS: MoRPHine SULFATE 4 MG/ML 1 ML CARP\\VIAL IV PRN (01:12)
[2022-06-28] MEDS ORDERED: KETOROLAC TROMETHAMINE 15 MG/ML VIAL IM STA (01:45)
[2022-06-28] MEDS ORDERED: KETOROLAC TROMETHAMINE 15 MG/ML VIAL IV STA (01:51)
[2022-06-28] MEDS: oxyCODONE HCL IR 5 MG TAB (IMMEDIATE RELEASE) PO PRN (05:45)
[2022-06-28 06:56] LABS: Hematocrit (blood only) 42.1 % (37.0-47.0); Hemoglobin 14.4 g/dl (12.0-16.0); Mean Corpuscular Hemoglobin 30.1 pg (25.0-34.0); Mean Corpuscular Hgb Conc 34.2 g/dL (32.0-36.0); Mean Corpuscular Volume 88.1 fL (80.0-100.0); Mean Platelet Volume 9.1 fL (9.4-12.4); Platelet Count 356 K/uL (130-400); RDW Coefficient of Variation 11.9 % (11.5-14.5); RDW Standard Deviation 38.5 fL (36.4-46.3); Red Blood Count 4.78 M/uL (4.20-5.40); White Blood Count 10.21 K/ul (4.8-10.8)
[2022-06-28 07:19] LABS: BUN Creatinine Ratio 29.5 (10-20); Calcium 9.2 mg/dl (8.5-10.1); Creatinine Clr Calc Pharmacy 121.8 ml/min; Est GFR (African American) 120.2 ml/min; Est GFR (Non-African American) 103.7 ml/min; Potassium 3.4 mmol/L (3.5-5.1)
--- NOTE | 2022-06-28 07:42 | Hospitalist Progress Note ---
Date of Service June 28, 2022 Assessment & Plan (1) Abdominal pain: Plan: Acute abdominal pain is now resolved and replaced mostly by mechanical back pain. 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 Patient will need to have reconnection with her primary care provider at time of discharge Mechanical back pain evaluated by MRI of thoracic and lumbar spine. Arthritic changes are seen with some facet arthropathy at the lower with MRI thoracic spine on the left. Sed rate not significantly elevated, most likely this is mechanical pain from arthritic change 06/28/2022 added Celebrex continue Lidoderm reduced parenteral opiate dosing discontinue oral opiate dosing and substituted tramadol (2) Urinary tract infection: Plan: Acute with moderate risk the patient. Patient is diabetic likely at risk for infections. States had a serious urinary tract infection in her past. Cultures reveal E. coli sensitive to ceftriaxone continues on parenteral ceftriaxone will complete 5 days (3) Diabetes: Plan: Acute uncontrolled diabetes of serious risk the patient with known endorgan damage of retinopathy Patient's history is not consistent with her clinical presentation she cannot recall the name of her medication basal bolus insulin with acute monitoring for hypoglycemia since we are unsure of our starting point Hemoglobins A1c of 13 suggest outpatient compliance problems or poor treatment nutrition educator provided bedside instruction pt states she can have a friend help her and will change to NPH here to eventually go to 70/30 at home for BID dosing Plan Patient is a full code Lovenox for DVT prevention Physical therapy evaluation for acute on chronic mechanical back pain and functional status Admission and Anticipated Discharge Date Admission Date: June 26, 2022 Subjective Patient still with significant back pain radiating around her left side her abdomen. On examination her central spine is mildly tender this more seem to be paraspinous musculature. will try lidoderm Significant challenges with diabetic management for this patient given her eyesight reduction, i personally discussed to change to NPH bid Physical Exam Physical Exam: Awake alert patient looks improved this her blood pressure comes under control and her urinary tract infection is being treated. Cardiac exam is regular lungs are clear without wheezes or crackles Extremities show no decrease in motor strength or reflexes Results & Data Results & Data ([place]) Vital Signs (Past 12 Hours) Vital Signs Temp Pulse Resp BP Pulse Ox O2 Del Method 06/28/22 07:25 97.9 F 77 18 116/80 94 Room Air 06/27/22 20:10 Room Air 06/27/22 22:55 97.3 F L 92 H 18 148/84 H 94 Room Air Laboratory Results Reviewed CBC Reviewed chemistry panel hypokalemia noted treated with oral potassium on 06/28/2022 PG Care Time/CCT Total # of Minutes Spent Total Time Spent with Patient: Total time spent is greater than 50% in coordination of care (as documented) at patient's floor/unit and/or counseling patient: Coding Level of Care Code 07646 SUB INP/OBS CARE MIN Diagnoses Abdominal pain R10.9 Urinary tract infection N39.0 Diabetes E11.9
[2022-06-28] MEDS: INSULIN ASPART PER UNIT SC SCH ×4 (09:19→20:55)
[2022-06-28] MEDS: LANTUS PER UNIT CHARGE SQ SCH (09:19)
[2022-06-28] MEDS: CELECOXIB 100 MG CAP PO SCH ×2 (09:20→20:11)
[2022-06-28] MEDS: POTASSIUM CHLORIDE CRTAB 20 MEQ TABCR PO SCH ×2 (09:20→20:11)
[2022-06-28] MEDS: SENNA 8.6 MG TAB PO SCH (09:20)
[2022-06-28] MEDS: ACETAMINOPHEN 500 MG TAB PO SCH ×3 (09:20→20:11)
[2022-06-28] MEDS: NICOTINE 21 MG/24 HR TDSY TD SCH (09:21)
[2022-06-28] MEDS: POLYETHYLENE (MIRALAX) 17 GM PACK PO SCH (09:21)
[2022-06-28] MEDS: traMADol HCL 50 MG TABLET PO PRN (13:26)
[2022-06-28] MEDS ORDERED: PHARMACY GLYCEMIC MGMT CONSULT PRN (14:10)
--- NOTE | 2022-06-28 14:38 | Pharmacy Report ---
Pharmacy Glycemic Short Note 2 - Date of Service June 28, 2022 - Glycemic Short BSG Results (Last 24 hours): 06/27/22 06/27/22 06/28/22 17:14 20:30 05:59 Glucose 188 H POC Glucose 208 H 211 H 06/28/22 06/28/22 08:12 12:11 Glucose POC Glucose 180 H 208 H OUTPATIENT ANTIDIABETIC REGIMEN: * unknown * A1c 13% ASSESSMENT: * 66 year old admitted with abdominal pain, uncontrolled diabetes. Per notes, she reports being on an insulin pill and that she is allergic to metformin and rybelsus. Blood sugar in 400s on admission, A1c ~13%. Patient will need to go home on insulin. * Provider reaching out to pharmacy to help with transitioning to Novolin 70/30 mix insulin on discharge. Patient with retinopathy and not able to see drawing up insulin doses, however does have a friend who will be helping with insulin at home that is only able to come in twice a day * Unfortunately, pharmacy does not carry Novolin 70/30 mix insulin therefore will change Lantus to NPH BID dosing to provide easier transition to mix insulin on discharge * Patient likely to be discharged /Wed this week - will follow along to help establish appropriate insulin dosing for discharge PLAN FOR INPATIENT GLYCEMIC CONTROL: * Hold outpatient oral diabetes medications * Basal insulin * NPH 20 units BIDM * Bolus insulin * NovoLog per scale ACHS or Q6hrs while NPO * Goal Range: Low 110 mg/dL - High 140 mg/dL * Correction Factor: 25 mg/dL/unit * Nutritional / Prandial insulin per carb ratio of 1 unit per 9 grams CHO consumed
[2022-06-28] MEDS: cefTRIAXone SODIUM 2,000 MG in DEXTROSE 5% 50 ML IV SCH (16:34)
[2022-06-28] MEDS: INSULIN HUMAN NPH SC SCH (18:03)
[2022-06-28] MEDS: ENOXAPARIN INJ 40 MG/0.4 ML SYR SQ SCH (18:05)
[2022-06-28] MEDS: LIDOCAINE 5% 1 PATCH TD SCH (18:05)
[2022-06-29 06:24] LABS: Hematocrit (blood only) 40.2 % (37.0-47.0); Mean Corpuscular Hemoglobin 30.3 pg (25.0-34.0); Mean Corpuscular Hgb Conc 34.8 g/dL (32.0-36.0); Mean Platelet Volume 9.2 fL (9.4-12.4); Platelet Count 388 K/uL (130-400); RDW Coefficient of Variation 11.6 % (11.5-14.5); RDW Standard Deviation 37.3 fL (36.4-46.3); Red Blood Count 4.62 M/uL (4.20-5.40); White Blood Count 10.22 K/ul (4.8-10.8)
[2022-06-29 06:43] LABS: BUN Creatinine Ratio 28.2 (10-20); Calcium 9.3 mg/dl (8.5-10.1); Creatinine Clr Calc Pharmacy 137.4 ml/min; Est GFR (African American) 125.1 ml/min; Est GFR (Non-African American) 107.9 ml/min; Potassium 3.7 mmol/L (3.5-5.1)
[2022-06-29] MEDS: traMADol HCL 50 MG TABLET PO PRN ×2 (07:14→17:37)
[2022-06-29] MEDS: CELECOXIB 100 MG CAP PO SCH ×2 (08:56→20:16)
[2022-06-29] MEDS: NICOTINE 21 MG/24 HR TDSY TD SCH (08:58)
[2022-06-29] MEDS: POLYETHYLENE (MIRALAX) 17 GM PACK PO SCH (09:00)
[2022-06-29] MEDS: SENNA 8.6 MG TAB PO SCH (09:02)
[2022-06-29] MEDS: INSULIN ASPART PER UNIT SC SCH ×4 (09:23→20:46)
[2022-06-29] MEDS: INSULIN HUMAN NPH SC SCH ×2 (09:26→17:50)
[2022-06-29] MEDS: ACETAMINOPHEN 500 MG TAB PO SCH ×3 (09:29→20:16)
[2022-06-29] MEDS: POTASSIUM CHLORIDE CRTAB 20 MEQ TABCR PO SCH ×2 (09:30→09:31)
[2022-06-29] MEDS: cefTRIAXone SODIUM 2,000 MG in DEXTROSE 5% 50 ML IV SCH (15:26)
[2022-06-29] MEDS ORDERED: predniSONE 20 MG TAB PO STA (15:31)
--- NOTE | 2022-06-29 15:37 | Hospitalist Progress Note ---
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 Patient will need to have reconnection with her primary care provider at time of discharge Mechanical back pain s/p MRI of thoracic and lumbar spine. Arthritic changes are seen with some facet arthropathy at the lower with MRI thoracic spine on the left. Sed rate not significantly elevated, most likely this is mechanical pain from arthritic change (2) Urinary tract infection: Plan: Acute with moderate risk the patient. Patient is diabetic likely at risk for infections. States had a serious urinary tract infection in her past. Cultures reveal E. coli sensitive to ceftriaxone continues on parenteral ceftriaxone will complete 5 days (3) Diabetes: Plan: Acute uncontrolled diabetes of serious risk the patient with known endorgan damage of retinopathy Patient's history is not consistent with her clinical presentation she cannot recall the name of her medication basal bolus insulin with acute monitoring for hypoglycemia since we are unsure of our starting point Hemoglobins A1c of 13 suggest outpatient compliance problems or poor treatment staff development educator provided bedside instruction pt states she can have a friend help her and will change to NPH here to eventually go to 70/30 at home for BID dosing Plan Patient is a full code Lovenox for DVT prevention Physical therapy evaluation for acute on chronic mechanical back pain and fu nctional status Admission and Anticipated Discharge Date Admission Date: June 26, 2022 Subjective Patient still with significant back discomfort however states she is able to walk around physical therapy. Patient states she feels she eventually will be comfortable enough to return home. Attempting to control her glucose getting her to twice a day insulin injections to try to help keep her blood glucose in better control. We will attempt 1 dose of steroids to see if it improves her back discomfort as it seems by imaging that majority of her discomfort is likely related to osteoarthritic change to her spine Physical Exam Physical Exam: Awake alert patient looks improved her e coli urinary tract infection is being treated. Cardiac exam is regular lungs are clear without wheezes or crackles Extremities show no decrease in motor strength or reflexes Results & Data Results & Data ([facility]) Vital Signs (Past 12 Hours) Vital Signs Temp Pulse Pulse Resp BP BP Pulse Ox 06/29/22 14:40 97.5 F L 86 18 165/83 H 94 06/29/22 09:42 16 06/29/22 08:00 97.3 F L 76 155/79 H 95 O2 Del Method 06/29/22 14:40 Room Air 06/29/22 09:42 06/29/22 08:00 Room Air Laboratory Results Reviewed CBC Reviewed chemistry panel PG Care Time/CCT Total # of Minutes Spent Total Time Spent with Patient: Total time spent is greater than 50% in coordination of care (as documented) at patient's floor/unit and/or counseling patient: Coding Level of Care Code 55107 SUB INP/OBS CARE 2/35MIN Diagnoses Abdominal pain R10.9 Urinary tract infection N39.0 Diabetes E11.9
[2022-06-29] MEDS: LIDOCAINE 5% 1 PATCH TD SCH (17:56)
[2022-06-29] MEDS: ENOXAPARIN INJ 40 MG/0.4 ML SYR SQ SCH (20:16)
[2022-06-30] MEDS: NICOTINE 21 MG/24 HR TDSY TD SCH (09:16)
[2022-06-30] MEDS: POLYETHYLENE (MIRALAX) 17 GM PACK PO SCH (09:17)
[2022-06-30] MEDS: SENNA 8.6 MG TAB PO SCH (09:17)
[2022-06-30] MEDS: CELECOXIB 100 MG CAP PO SCH ×2 (09:17→20:03)
[2022-06-30] MEDS: ACETAMINOPHEN 500 MG TAB PO SCH ×3 (09:17→20:02)
[2022-06-30] MEDS: INSULIN ASPART PER UNIT SC SCH ×4 (09:23→20:55)
[2022-06-30] MEDS: INSULIN HUMAN NPH SC SCH ×2 (09:24→17:52)
--- NOTE | 2022-06-30 09:35 | Pharmacy Report ---
Pharmacy Glycemic Short Note 2 - Date of Service June 30, 2022 - Glycemic Short BSG Results (Last 24 hours): 06/29/22 06/29/22 06/29/22 11:58 17:12 20:34 POC Glucose 201 H 121 H 165 H 06/30/22 08:25 POC Glucose 121 H OUTPATIENT ANTIDIABETIC REGIMEN: * Unknown * HbA1c: 13.1% (06/26/22) ASSESSMENT: 06/30/22: * Transition to NPH insulin has been successful. BSGs have been relatively well-controlled for the past 48 hours. * Novolog parameters adjusted slightly this morning. * Pt has been receiving ~60 units of insulin per day during admission. This is probably a good place to start with her outpatient dosing. * Consider 70/30 insulin at discharge: 30-40 units SQ qAM, 15-20 units SQ qPM? 06/28/22 * 66 year old admitted with abdominal pain, uncontrolled diabetes. Per notes, she reports being on an insulin pill and that she is allergic to metformin and rybelsus. Blood sugar in 400s on admission, A1c ~13%. Patient will need to go home on insulin. * Provider reaching out to pharmacy to help with transitioning to Novolin 70/30 mix insulin on discharge. Patient with retinopathy and not able to see drawing up insulin doses, however does have a friend who will be helping with insulin at home that is only able to come in twice a day * Unfortunately, pharmacy does not carry Novolin 70/30 mix insulin therefore will change Lantus to NPH BID dosing to provide easier transition to mix insulin on discharge * Patient likely to be discharged Tues/Wed this week - will follow along to help establish appropriate insulin dosing for discharge PLAN FOR INPATIENT GLYCEMIC CONTROL: * Basal insulin * NPH 20 units BIDM * Bolus insulin * NovoLog per scale ACHS or Q6hrs while NPO * Goal Range: Low 110 mg/dL - High 140 mg/dL * Correction Factor: 30 mg/dL/unit * Nutritional / Prandial insulin per carb ratio of 1 unit per 8 grams CHO consumed
[2022-06-30] MEDS: cefTRIAXone SODIUM 2,000 MG in DEXTROSE 5% 50 ML IV SCH (15:16)
--- NOTE | 2022-06-30 16:23 | Hospitalist Progress Note ---
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 Patient will need to have reconnection with her primary care provider at time of discharge Mechanical back pain s/p MRI of thoracic and lumbar spine. Arthritic changes are seen with some facet arthropathy at the lower with MRI thoracic spine on the left. Sed rate not significantly elevated, most likely this is mechanical pain from arthritic change (2) Urinary tract infection: Plan: Acute with moderate risk the patient. Patient is diabetic likely at risk for infections. States had a serious urinary tract infection in her past. Cultures reveal E. 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 Still trying to arrange how she will get help at home with her eyesight no other new complaints or problems at this time Physical Exam Physical Exam: Awake alert patient continues to look improved Cardiac exam is regular lungs are clear without wheezes or crackles Extremities show no decrease in motor strength or reflexes Results & Data Results & Data ([facility]) Vital Signs (Past 12 Hours) Vital Signs Temp Pulse Resp BP Pulse Ox O2 Del Method 06/30/22 07:31 97.9 F 81 18 139/84 96 Room Air PG Care Time/CCT Total # of Minutes Spent Total Time Spent with Patient: Total time spent is greater than 50% in coordination of care (as documented) at patient's floor/unit and/or counseling patient: Coding Level of Care Code 77115 SUB INP/OBS CARE 2/35MIN Diagnoses Abdominal pain R10.9 Urinary tract infection N39.0 Diabetes E11.9
[2022-06-30] MEDS: predniSONE 20 MG TAB PO SCH (17:56)
[2022-06-30] MEDS: LIDOCAINE 5% 1 PATCH TD SCH (18:05)
[2022-06-30] MEDS: ENOXAPARIN INJ 40 MG/0.4 ML SYR SQ SCH (20:03)
[2022-06-30] MEDS ORDERED: LORazepam 2 MG/1 ML VIAL IV STA (23:38)
[2022-06-30] MEDS ORDERED: MELATONIN 3 MG TAB PO PRN (23:38)
[2022-07-01 08:02] LABS: Hematocrit (blood only) 41.7 % (37.0-47.0); Hemoglobin 14.7 g/dl (12.0-16.0); Mean Corpuscular Hemoglobin 30.6 pg (25.0-34.0); Mean Corpuscular Hgb Conc 35.3 g/dL (32.0-36.0); Mean Corpuscular Volume 86.9 fL (80.0-100.0); Mean Platelet Volume 9.2 fL (9.4-12.4); Platelet Count 433 K/uL (130-400); RDW Coefficient of Variation 11.9 % (11.5-14.5); RDW Standard Deviation 37.8 fL (36.4-46.3); White Blood Count 10.94 K/ul (4.8-10.8)
[2022-07-01 08:23] LABS: BUN Creatinine Ratio 30.4 (10-20); Calcium 9.2 mg/dl (8.5-10.1); Creatinine Clr Calc Pharmacy 116.5 ml/min; Est GFR (African American) 118.5 ml/min; Est GFR (Non-African American) 102.2 ml/min
[2022-07-01] MEDS: INSULIN HUMAN NPH SC SCH ×2 (08:40→18:20)
[2022-07-01] MEDS: CELECOXIB 100 MG CAP PO SCH ×2 (08:41→20:05)
[2022-07-01] MEDS: ACETAMINOPHEN 500 MG TAB PO SCH ×3 (08:41→20:04)
[2022-07-01] MEDS: NICOTINE 21 MG/24 HR TDSY TD SCH (08:41)
[2022-07-01] MEDS: POLYETHYLENE (MIRALAX) 17 GM PACK PO SCH (08:42)
[2022-07-01] MEDS: lisinopril 2.5 MG TAB PO SCH (08:42)
[2022-07-01] MEDS: predniSONE 20 MG TAB PO SCH (08:42)
[2022-07-01] MEDS: SENNA 8.6 MG TAB PO SCH (08:42)
[2022-07-01] MEDS: INSULIN ASPART PER UNIT SC SCH ×4 (08:49→21:15)
--- NOTE | 2022-07-01 15:38 | Hospitalist Progress Note ---
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 Patient will need to have reconnection with her primary care provider at time of discharge Mechanical back pain s/p MRI of thoracic and lumbar spine. Arthritic changes are seen with some facet arthropathy at the lower with MRI thoracic spine on the left. Sed rate not significantly elevated, most likely this is mechanical pain from arthritic change (2) Urinary tract infection: Plan: Acute with moderate risk the patient. Patient is diabetic likely at risk for infections. States had a serious urinary tract infection in her past. Cultures reveal E. coli sensitive to ceftriaxone continues on parenteral ceftriaxone will complete 5 days last dose 07/01/2022 (3) Diabetes: Plan: Acute uncontrolled diabetes of serious risk the patient with known endorgan damage of retinopathy Patient's history is not consistent with her clinical presentation she cannot recall the name of her medication basal bolus insulin with acute monitoring for hypoglycemia since we are unsure of our starting point Hemoglobins A1c of 13 suggest outpatient compliance problems or poor treatment breastfeeding educator provided bedside instruction pt states she can have a friend help her and will change to NPH here to eventually go to 70/30 at home for BID dosing Plan Patient is a full code Lovenox for DVT prevention Physical therapy evaluation for acute on chronic mechanical back pain and functional status Admission and Anticipated Discharge Date Admission Date: June 26, 2022 Subjective Patient's back pain is improved with prednisone therapy she still has some radicular pain around her left side. She is struggling with her home insulin pen. Still trying to arrange how she will get help at home with her eyesight no other new complaints or problems at this time Physical Exam Physical Exam: Awake alert patient continues to look improved Cardiac exam is regular lungs are clear without wheezes or crackles Extremities show no decrease in motor strength or reflexes Results & Data Results & Data ([facility]) Vital Signs (Past 12 Hours) Vital Signs Temp Pulse Resp BP Pulse Ox O2 Del Method 07/01/22 15:19 97.7 F 93 H 18 131/65 94 Room Air 07/01/22 07:37 98.2 F 80 18 120/70 94 Room Air Laboratory Results Reviewed CBC Reviewed chemistry panel PG Care Time/CCT Total # of Minutes Spent Total Time Spent with Patient: Total time spent is greater than 50% in coordination of care (as documented) at patient's floor/unit and/or counseling patient: Coding Level of Care Code 59266 SUB INP/OBS CARE 2/35MIN Diagnoses Abdominal pain R10.9 Urinary tract infection N39.0 Diabetes E11.9
[2022-07-01] MEDS: LIDOCAINE 5% 1 PATCH TD SCH (18:20)
[2022-07-01] MEDS: ENOXAPARIN INJ 40 MG/0.4 ML SYR SQ SCH (20:05)
[2022-07-02] MEDS: MoRPHine SULFATE 2 MG/ML CARP IV PRN (02:52)
[2022-07-02] MEDS: traMADol HCL 50 MG TABLET PO PRN (03:14)
[2022-07-02] MEDS: INSULIN ASPART PER UNIT SC SCH ×4 (08:55→20:07)
[2022-07-02] MEDS: NICOTINE 21 MG/24 HR TDSY TD SCH (08:57)
[2022-07-02] MEDS: POLYETHYLENE (MIRALAX) 17 GM PACK PO SCH (08:57)
[2022-07-02] MEDS: predniSONE 20 MG TAB PO SCH (08:57)
[2022-07-02] MEDS: SENNA 8.6 MG TAB PO SCH (08:57)
[2022-07-02] MEDS: CELECOXIB 100 MG CAP PO SCH ×2 (08:58→20:08)
[2022-07-02] MEDS: lisinopril 2.5 MG TAB PO SCH (08:58)
[2022-07-02] MEDS: ACETAMINOPHEN 500 MG TAB PO SCH ×3 (08:58→20:08)
[2022-07-02] MEDS ORDERED: INSULIN HUMAN NPH SC SCH ×2 (09:00→17:00)
--- NOTE | 2022-07-02 12:40 | Pharmacy Report ---
Pharmacy Glycemic Short Note 2 - Date of Service July 02, 2022 - Glycemic Short BSG Results (Last 24 hours): 07/01/22 07/01/22 07/02/22 17:21 20:57 07:58 POC Glucose 237 H 233 H 107 H 07/02/22 11:48 POC Glucose 145 H OUTPATIENT ANTIDIABETIC REGIMEN: * Unknown * HbA1c: 13.1% (06/26/22) ASSESSMENT: 07/02/22: * Patient is on Prednisone 20 mg PO QAM. This led to BSG trending up above 200 at dinner and bedtime yesterday. * She received total 69 units of insulin yesterday; 40 units basal NPH and 29 units bolus. * Fasting BSG at goal = 107 mg/dl today. NPH dose in AM increased to 25 units today to prevent BSG from trending up high later. Novolog parameters were also tightened slightly this morning. * After she completes Prednisone therapy tomorrow, will plan to reduce NPH dosing back to 20 units BID with meals. 06/30/22: * Transition to NPH insulin has been successful. BSGs have been relatively well-controlled for the past 48 hours. * Novolog parameters adjusted slightly this morning. * Pt has been receiving ~60 units of insulin per day during admission. This is probably a good place to start with her outpatient dosing. * Consider 70/30 insulin at discharge: 30-40 units SQ qAM, 15-20 units SQ qPM? 06/28/22 * 66 year old admitted with abdominal pain, uncontrolled diabetes. Per notes, she reports being on an insulin pill and that she is allergic to metformin and rybelsus. Blood sugar in 400s on admission, A1c ~13%. Patient will need to go home on insulin. * Provider reaching out to pharmacy to help with transitioning to Novolin 70/30 mix insulin on discharge. Patient with retinopathy and not able to see drawing up insulin doses, however does have a friend who will be helping with insulin at home that is only able to come in twice a day * Unfortunately, pharmacy does not carry Novolin 70/30 mix insulin therefore will change Lantus to NPH BID dosing to provide easier transition to mix insulin on discharge * Patient likely to be discharged /Wed this week - will follow along to help establish appropriate insulin dosing for discharge PLAN FOR INPATIENT GLYCEMIC CONTROL: * Basal insulin * NPH 25 units in AM and NPH 20 units at dinner time * Bolus insulin * NovoLog per scale ACHS or Q6hrs while NPO * Goal Range: Low 110 mg/dL - High 140 mg/dL * Correction Factor: 20 mg/dL/unit * Nutritional / Prandial insulin per carb ratio of 1 unit per 7 grams CHO consumed
[2022-07-02] MEDS: LIDOCAINE 5% 1 PATCH TD SCH (17:46)
[2022-07-02] MEDS: ENOXAPARIN INJ 40 MG/0.4 ML SYR SQ SCH (18:43)
--- NOTE | 2022-07-02 20:43 | Hospitalist Progress Note ---
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 Patient will need to have reconnection with her primary care provider at time of discharge Mechanical back pain s/p MRI of thoracic and lumbar spine. Arthritic changes are seen with some facet arthropathy at the lower with MRI thoracic spine on the left. Sed rate not significantly elevated, most likely this is mechanical pain from arthritic change will consult DDr. Carlin. (2) Urinary tract infection: Plan: Acute with moderate risk the patient. Patient is diabetic likely at risk for infections. States had a serious urinary tract infection in her past. Cultures reveal E. 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 She states her pain improves when she bends forward. Her pain had been treated decades ago wiht injections but they stopped working. Review of Systems Review of Systems: All systems reviewed & are unremarkable except as noted in HPI & below Physical Exam Physical Exam: Awake alert patient continues to look improved Cardiac exam is regular lungs are clear without wheezes or crackles Extremities show no decrease in motor strength or reflexes Results & Data Results & Data ([facility]) Vital Signs (Past 12 Hours) Vital Signs Temp Pulse Resp BP BP Pulse Ox O2 Del Method 07/02/22 15:25 36.5 C 74 18 112/58 L 94 Room Air 07/02/22 11:28 36.7 C 77 18 132/75 98 Room Air PG Care Time/CCT Total # of Minutes Spent Total Time Spent with Patient: Total time spent is greater than 50% in coordination of care (as documented) at patient's floor/unit and/or counseling patient: Coding Level of Care Code 92464 SUB INP/OBS CARE 2/35MIN Diagnoses Abdominal pain R10.9 Urinary tract infection N39.0 Diabetes E11.9
[2022-07-03 07:34] LABS: Hematocrit (blood only) 43.1 % (37.0-47.0); Hemoglobin 14.5 g/dl (12.0-16.0); Mean Corpuscular Hemoglobin 29.9 pg (25.0-34.0); Mean Corpuscular Hgb Conc 33.6 g/dL (32.0-36.0); Mean Corpuscular Volume 88.9 fL (80.0-100.0); Mean Platelet Volume 9.1 fL (9.4-12.4); Platelet Count 422 K/uL (130-400); RDW Coefficient of Variation 12.2 % (11.5-14.5); RDW Standard Deviation 39.3 fL (36.4-46.3); Red Blood Count 4.85 M/uL (4.20-5.40); White Blood Count 10.67 K/ul (4.8-10.8)
[2022-07-03] MEDS: traMADol HCL 50 MG TABLET PO PRN ×2 (07:38→16:02)
[2022-07-03 07:50] LABS: Calcium 9.2 mg/dl (8.5-10.1); Magnesium 1.7 mg/dl (1.7-2.4); Potassium 3.5 mmol/L (3.5-5.1)
[2022-07-03 07:56] LABS: Est GFR (African American) 117.6 ml/min; Est GFR (Non-African American) 101.5 ml/min; Phosphorus 4.1 mg/dl (2.5-4.9)
[2022-07-03] MEDS ORDERED: INSULIN HUMAN NPH SC SCH ×2 (09:00→17:00)
[2022-07-03] MEDS: ACETAMINOPHEN 500 MG TAB PO SCH ×2 (09:42→14:59)
[2022-07-03] MEDS: SENNA 8.6 MG TAB PO SCH ×2 (09:43→09:49)
[2022-07-03] MEDS: CELECOXIB 100 MG CAP PO SCH (09:43)
[2022-07-03] MEDS: lisinopril 2.5 MG TAB PO SCH (09:44)
[2022-07-03] MEDS: NICOTINE 21 MG/24 HR TDSY TD SCH (09:44)
--- NOTE | 2022-07-03 09:46 | Orthopedic Consultation ---
Date of Consultation July 03, 2022 Assessment & Plan (1) Chronic back pain greater than 3 months duration: Assessment chronic persistent back pain. Plan at this time MRIs do demonstrate evidence of advanced degenerative change throughout the thoracolumbar spine. I do not see any indication for surgical invention. I discussed possible referral to interventional pain management particularly for the facet arthropathy and possible facet injections. At this time she has declined this consultation and believes she can manage it on her own. History of Present Illness Reason for Consultation: Chronic back pain Attending Physician: Garrison Michel History of Present Illness This is a very pleasant 58-year-old female presents with chronic persistent back pain. She states she has had a 25-year history of back pain. She is undergone several sessions of physical therapy and injections many years ago. Today she has pain mostly throughout the thoracolumbar region. She denies any significant leg pain. She does note peripheral neuropathy. 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 Allergies Allergy/AdvReac Type Severity Reaction Status Date / Time citalopram Allergy Mild Unknown Verified 06/25/22 16:39 quetiapine Allergy Mild Unknown Verified 06/25/22 16:39 latex Allergy Unknown TO POWDER Verified 10/20/11 08:06 W/ LATEX, JAK. NON-LATEX FREE IV'S [id number] pine nut Allergy Unknown "evergreen Verified 06/25/22 16:40 sap" allergy venlafaxine Allergy Unknown Unknown Verified 06/25/22 16:39 celecoxib Allergy _ Unverified 10/18/11 19:21 ibuprofen Allergy "ABD Verified 10/18/11 08:32 DISTRESS" salmon oil Allergy ANAPHYLAXIS Verified 10/18/11 08:32 Home Medications Medication Instructions Recorded Confirmed Type blood sugar diagnostic (Prodigy No #50 ea 07/01/22 Rx Coding strips) blood-glucose meter (Prodigy #1 ea 07/01/22 Rx Autocode Meter kit) lancets 28 gauge (Prodigy Twist #100 ea 07/01/22 Rx Top Lancet) pen needle, diabetic 32 gauge x #100 ea 07/01/22 Rx 5/32" (Pen Needle) Patient History Medical History (Updated 07/03/22 @ 09:46 by Nayan Carlin DO) Pneumococcal pneumonia Surgical History (Updated 06/25/22 @ 17:07 by Hiren Roa MD) History of endometrial ablation S/P lumpectomy, left breast Social History Smoking Status: Current every day smoker Hx Alcohol Use: No Hx Substance Use: No Preferred Language: Ukrainian Communication Ability: Effective Configuration Developer Required: No Beliefs That Will Affect Care: None Current Living Situation: Alone Feels Safe at Home: Yes Assistive Devices: None Physical Exam Physical Exam: On exam she is sitting up in bed at the bedside. She has good strength testing lower extremities. Sensory appears to be intact. She is quite tender to palpation of thoracolumbar junction. There are no abnormal skin markings. Results & Data ([facility]) Vital Signs (Past 12 Hours) Vital Signs Temp Pulse Resp BP Pulse Ox O2 Del Method 07/03/22 07:49 36.5 C 68 18 137/73 98 Room Air 07/02/22 22:00 36.6 C 78 20 124/71 97 Room Air
[2022-07-03] MEDS: predniSONE 20 MG TAB PO SCH (09:47)
[2022-07-03] MEDS: POLYETHYLENE (MIRALAX) 17 GM PACK PO SCH (09:48)
[2022-07-03] MEDS: INSULIN ASPART PER UNIT SC SCH ×3 (09:55→17:52)
[2022-07-03] MEDS: MoRPHine SULFATE 2 MG/ML CARP IV PRN (11:10)
[2022-07-03] MEDS: LIDOCAINE 5% 1 PATCH TD SCH (18:05)
[2022-07-03] MEDS: ENOXAPARIN INJ 40 MG/0.4 ML SYR SQ SCH (18:36)
--- NOTE | 2022-07-09 16:47 | Discharge Summary ---
Date of Service July 03, 2022 Admission HPI Per Admitting Provider 66-year-old female has not seen a healthcare provider for many years presents with back pain radiating to her left upper abdomen, leukocytosis, abnormal urinalysis consistent with UTI present on admission uncontrolled diabetes. Patient's history is very varied and not making quite sense. We checked the pharmacy she states she uses for diabetic and migraine medications they have no record of her. She is not seen any healthcare provider in our system since 2011 although she and lists Theresa Gil as her primary care provider. She had scanning including chest abdomen pelvis CT scan and a chest x-ray which did not support any physical means for her radicular pain. Certainly she has some mild skin changes which could be from a heating pad but were keeping surveillance for possible shingles. Patient states her blood glucose is usually 1 20-1 40 but cannot be defined and exactly how she checks this. She has a blood glucose of 473 on admission. She states she has diabetic retinopathy cannot be clear whether she had laser treatment to her retina. She states she is on an insulin pill but that she is allergic to metformin and Rybelsus as she is taking a migraine pill on Sundays which helps take care of her tension migraines Principal Diagnosis abdominal pain Discharge Exam Awake alert patient continues to look improved Cardiac exam is regular lungs are clear without wheezes or crackles Extremities show no decrease in motor strength or reflexes Discharge Data Allergies Allergy/AdvReac Type Severity Reaction Status Date / Time citalopram Allergy Mild Unknown Verified 07/09/22 17:26 quetiapine Allergy Mild Unknown Verified 07/09/22 17:26 latex Allergy Unknown TO POWDER Verified 07/09/22 17:26 W/ LATEX, JAK. NON-LATEX FREE IV'S [id number] pine nut Allergy Unknown "evergreen Verified 07/09/22 17:26 sap" allergy venlafaxine Allergy Unknown Unknown Verified 07/09/22 17:26 ibuprofen Allergy "ABD Verified 07/09/22 17:26 DISTRESS" salmon oil Allergy ANAPHYLAXIS Verified 07/09/22 17:26 Consultations 06/25/22 15:52 ED Decision to Admit Stat 07/02/22 16:53 Consult Orthopedic Surgery Routine Ordered Studies 06/25/22 13:00 CT abd pelvis IV con only Stat CT angio chest PE protocol Stat 06/27/22 11:20 MRI Lumbar Spine [MR lumbar spine wo con] Routine MRI Thoracic [MR thoracic spine wo con] Routine Diabetes Follow up Diabetes Follow-up Needed for HgbA1c >9% Hospital Course (1) Abdominal pain: Acute abdominal pain is now resolved and replaced mostly by mechanical back pain plus urinary tract infection present on admission 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 Patient will need to have reconnection with her primary care provider at time of discharge Mechanical back pain s/p MRI of thoracic and lumbar spine. Arthritic changes are seen with some facet arthropathy at the lower with MRI thoracic spine on the left. Sed rate not significantly elevated, most likely this is mechanical pain from arthritic change will consult Dr. Carlin. Patient reports she does not want any intervention at this time and marc re consult if this changes. (2) Urinary tract infection: Acute with moderate risk the patient. Patient is diabetic likely at risk for infections. States had a serious urinary tract infection in her past. Cultures reveal E. 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 Ok to discharge with home health. Total Time Total Time Spent Total Time Spent (In Minutes): 32 Discharge Plan Discharge Items Patient Disposition: Home - Home Health Services Reason For Visit: ABDOMINAL PAIN, UTI POA Discharge Diagnosis: UTI Activity: Resume your previous activity Non-emergency contact: Primary Care Provider Call non-emergency contact if: you have any medication questions Follow-up/Referrals: Sravanthi Cornell MD [Primary Care Provider] - Diet: Carb Consistent or DM2 Addtl Attending Provider Instructions: It is strongly recommended that you do not drive until you have a formal eyesight evaluation Acute abdominal pain is now resolved and replaced mostly by mechanical back pain plus urinary tract infection present on admission 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 Patient will need to have reconnection with her primary care provider at time of discharge Back pain likely from arthritic change, You may benefit from pain management injections. will defer to PCP. YOu were also treated for a UTI. pt states she can have a friend help her and will change to NPH here to eventually go to 70/30 at home for BID dosing Pending Studies at Discharge: No Stand-Alone Forms: [employer] Experience, Smoking Cessation Medications and DC Order Prescriptions: New (DME) pen needle, diabetic [Pen Needle] 32 gauge x 5/32" needle See Rx Instructions .Route Qty: 100 0RF Rx Instructions: As directed (DME) lancets [Prodigy Twist Top Lancet] 28 gauge misc See Rx Instructions .Route Qty: 100 0RF Rx Instructions: As directed (DME) Prodigy No Coding Strip See Rx Instructions .Route Qty: 50 5RF Rx Instructions: As directed (DME) blood-glucose meter [Prodigy Autocode Meter] Kit See Rx Instructions .Route Qty: 1 0RF Rx Instructions: As directed polyethylene glycol 3350 [Miralax] 17 gram Powder In Packet 17 g PO DAILY PRN (Reason: constipation) Qty: 30 0RF acetaminophen [Tylenol Extra Strength] 500 mg Tablet 1,000 mg PO TID Qty: 180 0RF nicotine [Nicoderm CQ] 21 mg/24 hr Patch 24 Hour 21 mg transdermal QAM Qty: 28 0RF celecoxib [Celebrex] 100 mg Capsule 100 mg PO BID Qty: 60 0RF lisinopril 2.5 mg Tablet 2.5 mg PO QAM Qty: 30 0RF sennosides [Senokot] 8.6 mg Tablet 8.6 mg PO QAM Qty: 30 0RF insulin NPH and regular human 100 unit/mL (70-30) insulin pen See Rx Instructions .ROUTE .COMPLEX Qty: 15 1RF Rx Instructions: 30 unit subcutaneously in Am with breakfast 20 units in evening with dinner (DME) pen needle, diabetic [Pen Needle] 31 gauge x 3/16" needle See Rx Instructions .Route Qty: 100 0RF Rx Instructions: As directed No Action tramadol 50 mg tablet See Rx Instructions PO .COMPLEX PRN (Reason: Pain) Qty: 90 0RF Rx Instructions: 1- 2 tablets PO Q 4-6 hours PRN; no more than 8 tablets daily gabapentin 300 mg capsule 300 mg PO HS Qty: 30 5RF Discharge Orders: Discharge Order (Routine); Ordered 07/03/22 Ordered By: Garrison Michel Admission Data Admit Date/Time: 06/26/22 07:22 Attending Provider: Garrison Michel Admit Provider: Hiren Roa Primary Care Provider: Sravanthi Cornell Other Providers: Indio Levi ; Nayan Carlin ; [facility] Other Interventions: Discharge Summary Assessment (RN) Last Done: 07/03/22 18:40 Coding Level of Care Code HOSP INP/OBS DISCH >30 MIN Diagnoses Abdominal pain R10.9 Urinary tract infection N39.0 Diabetes E11.9
--- NOTE | 2022-07-14 13:45 | Coding Query ---
CODING QUERY FOR UNCONTROLLED DIABETES To promote full compliance with coding requirements relating to patient care, provider participation is requested in all cases of bulk sealer operator uncertainty. Please assist us with the question(s) below: Coding Question: The term uncontrolled Diabetes was used throughout the record. To be able to code this diagnosis properly, could you please clarify the diagnosis below: ( ) Uncontrolled Diabetes meaning hypoglycemia (x ) Uncontrolled Diabetes meaning hyperglycemia ( ) Other (please specify) Principal Diagnosis: "that condition established after study, to be chiefly responsible for occasioning the admission of the patient to the hospital for care." Co-Existing Principal Diagnosis: "when two or more diagnoses equally meet the criteria for principal diagnosis as determined by the circumstances of admission, diagnostic work up, and/or therapy provided, and the Alphabetic Index, Tabular List, or another coding guideline does not provide sequencing direction, any one of the diagnoses may be sequenced first." "When the physician has documented what appears to be a current diagnosis in the body of the record, but has not included the diagnosis in the final diagnostic statement, the physician should be asked whether the diagnosis should be added." (Source Coding [facility] 2 QTR90. p3-4) KINA
== END 2022-07-03 19:39 | disposition home health service (06) | DRG 690 ==
LOC: ED 11:24 → 3N 11:24 → SUATTDRO 06-26 07:22

== ENCOUNTER 2024-08-11 14:51 | Inpatient (IN) ==
--- NOTE | 2024-08-11 15:39 | Emergency Department Note ---
Impression & Plan Syncope, Hypoglycemia, Contusion of rib, Contusion of hip, Bradycardia ED Provider Note NAME: LONNY HOPE AGE: 69 SEX: F : 1955 ARRIVES VIA: Ambulance INFORMANT: Patient, the patient's daughter ED PROVIDER(S): Jose Smith DO CHIEF COMPLAINT: Syncope HPI: The patient is a 69-year-old female who presented to the emergency department after having a syncopal episode. The patient's had multiple syncopal episodes recently. She has had multiple falls over since March of this year. She does not normally want to come to the hospital. She injured her left lower leg this time and had trouble walking. This is why she came to the emergency department. The patient denies having any headache. She denies having any shortness of breath. The patient has not been seeing her family doctor for this recently but was told that she may be having the symptoms because she is on a beta-aleta. She is have been noted to have low blood sugar on previous occurrences. ROS: See above HPI for pertinent positives & negatives. A total of 10 systems reviewed and were otherwise negative. PAST MEDICAL HISTORY: See Below PAST SURGICAL HISTORY: See Below FAMILY HISTORY: See Below SOCIAL HISTORY: See Below HOME MEDICATIONS: See Below ALLERGIES: See Below VITALS: See Below PHYSICAL EXAMINATION: GENERAL: Patient is awake alert in no acute distress patient is resting comfortably and showing no signs of anxiety EYES: The conjunctivae are clear. The pupils are round and reactive. EARS, NOSE, MOUTH AND THROAT: The nose is without any evidence of any deformity. Mucous membranes are moist. NECK: The neck is nontender and supple. RESPIRATORY: Normal respiratory effort is noted there is no evidence of wheezing rhonchi or rales CARDIOVASCULAR: Regular rate and rhythm noted there no murmurs rubs or gallops normal S1 normal S2. GASTROINTESTINAL: The abdomen is soft. Abdomen is nontender. BACK: No midline tenderness was noted. MUSCULOSKELETAL/EXTREMITIES: There is pain with palpation as well as range of motion testing of the left shoulder the left elbow the left hip the left knee as well as the right knee. No obvious deformity was noted. SKIN: Skin was warm and dry. Trace pedal edema was noted bilaterally. NEUROLOGIC: Patient is awake alert and oriented x3 strength is symmetric patellar reflexes are 2+ bilaterally MEDICAL DECISION MAKING: The patient is a 69-year-old female who presented to the emergency department. The patient has been having problems ever since March. It sounds though she has been having episodes of falling but these sound as though they may be related to hypoglycemia and syncope. The patient was found to be hypoglycemic a few episodes in the emergency department. She was also found to have symptomatic bradycardia. The patient states that she is taking her medications appropriately. She is diabetic and takes insulin. She is also on a beta- aleta. I discussed the patient's laboratory and radiographic studies with her. I also discussed her condition with the on-call [facility] hospitalist. They have agreed to evaluate the patient in the emergency department for further management and disposition. Triage Nursing notes reviewed. Prior medical records reviewed Vital Signs: reviewed and remarkable for bradycardia. Differential diagnosis: Fracture, dislocation, contusion, intra-abdominal, pneumothorax, intrathoracic, intracranial, neurologic, compartment syndrome, rhabdomyolysis, as well as other pathologies. ER treatment provided: See below Diagnostics interpreted by me: ECG: EKG was obtained in the emergency department. My interpretation is sinus rhythm at 49 bpm. No PVCs were noted. Right bundle-branch block pattern was noted. This was compared to a tracing from June 25, 2022. There is a decrease in the rate otherwise no changes noted. Cardiac Monitoring: An order was placed for continuous cardiac monitoring. The monitor shows a rate of 66 bpm with sinus rhythm. Laboratory studies: As stated above and show below. Imaging studies: See below. Radiographic imaging was reviewed by myself Consultation(s): I discussed this case with Dr. Garibay [facility] Past Med/Surg History Problem List (Updated 08/11/24 @ 20:37 by Jose Smith DO) Bradycardia (Acute) Contusion of hip (Acute) Contusion of rib (Acute) Hypoglycemia (Acute) Syncope (Acute) Postmenopausal Essential tremor (Chronic) Flatulence Gastric intestinal metaplasia Barretts esophagus Epigastric pain Migraine without aura and without status migrainosus, not intractable Tremor Hyperlipidemia (Chronic) Lumbosacral radiculopathy Arthritis Nutritional deficiency Obesity Change of skin color Neuropathy Swelling of both lower extremities Anxiety and depression (Chronic) Lumbar facet joint syndrome Thoracic facet joint syndrome Legally blind Lumbar back pain with radiculopathy affecting left lower extremity Thoracic back pain Thoracic disc disease with myelopathy Lumbar disc disease with radiculopathy Diabetic retinopathy (Chronic) Headache, migraine Diabetes (Chronic ~07/03/22) Medical History Family history of reaction to anesthesia father difficulty waking History of falling Patient has fallen 5 times since 03/2024, most recently 05/17, 05/22, and 05/23, she feels she may have lost consciousness and hit her head, she follows with [facility], last visit 06/01/2024, she is to meet with a supervisor case loading, Brenna on 06/12/2024 regarding possible assisted living Legally blind Thoracic back pain Lumbar back pain with radiculopathy affecting left lower extremity Hyperlipidemia Migraines Diabetes Arthritis GERD (gastroesophageal reflux disease) Gastric intestinal metaplasia Essential tremor Barretts esophagus Anxiety and depression Diabetic neuropathy Diabetic retinopathy blind in right eye Hx of pneumococcal pneumonia resolved Pain management has started following w/ pain management clinic Hx of cardiac murmur does not follow w/ cardio, found as a child, no issues Awareness under anesthesia PTSD (post-traumatic stress disorder) HTN (hypertension) Stroke reports having stroke right eye; unsure when COPD (chronic obstructive pulmonary disease) rarely uses prn inahlers Surgical History S/P cataract surgery BOTH EYES 2022 Hx of colonoscopy Hx of excision of mass left knee; benign Hx of dilation of urethra History of endometrial ablation S/P lumpectomy, left breast H/O tubal ligation History of cholecystectomy Family History Mother Cancer Restless leg syndrome Grandfather (Maternal) Cancer Sister Cancer Neuropathy Stroke Congestive heart failure Daughter Breast cancer X2 Grandmother (Maternal) Myocardial infarction Grandmother (Paternal) Myocardial infarction Sister Myocardial infarction Denies family history of Ovarian cancer Prostate cancer Colorectal cancer Social History Smoking Status: Former smoker Tobacco Type: Cigarettes Age Started Using Tobacco: 16; Age Quit Using Tobacco: 68; packs per day: 1; Second Hand Exposure: No; Do You Dip or Chew Tobacco: No; Hx Alcohol Use: No Hx Substance Use: No Preferred Language: Romanian Communication Ability: Impaired Communication Ability Comment: legally blind, difficulty reading Visual Impairment: No Limitations Hearing Ability: Normal Bass Mechanism Maker Required: No Beliefs That Will Affect Care: None marital status: Current Living Situation: Alone current occupational status: employed current occupation: [employer] How many Children do You have: 2 Feels Safe at Home: Yes Childhood Exposure to Second-Hand Smoke: Yes Diet: diabetic and low carbohydrate Diet Comment: low carb caffeine: No during the past year weight has: remained stable Dental Care, Regularly: No Physical Activity Frequency: 5-6 Times per Week Seatbelt Use: always Sunscreen Use: Yes Assistive Devices: Cane and Glasses Allergies Allergies Allergy/AdvReac Type Severity Reaction Status Date / Time pine nut Allergy Severe "evergreen Verified 08/11/24 18:27 sap" allergy, anaphylaxis salmon oil Allergy Severe ANAPHYLAXIS Verified 08/11/24 18:27 citalopram Allergy Intermediate Hives Verified 08/11/24 18:27 venlafaxine Allergy Intermediate Rash Verified 08/11/24 18:27 quetiapine Allergy Mild Rash Verified 08/11/24 18:27 latex Allergy Unknown TO POWDER Verified 08/11/24 18:27 W/ LATEX, JAK. NON-LATEX FREE IV'S [id number] ibuprofen AdvReac Mild "ABD Verified 08/11/24 18:27 DISTRESS" PINE SAP Allergy Severe Anaphylaxis Uncoded 08/11/24 18:27 metal Allergy Mild w/ Uncoded 08/11/24 18:27 prolonged exposure changes skin color and rash Home Meds Home Medications Medication Instructions Recorded Confirmed lidocaine 4 % topical patch 1 patch topical QID PRN Pain 08/24/22 08/11/24 (Salonpas (lidocaine)) cholecalciferol (vitamin D3) 25 25 mcg PO DAILY 06/14/23 08/11/24 mcg (1,000 unit) tablet (Vitamin D3) cyanocobalamin (vitamin B-12) 2,000 mcg PO DAILY 06/14/23 08/11/24 2,000 mcg tablet,extended release (Vitamin B-12 ER) magnesium 250 mg tablet 250 mg PO DAILY 06/14/23 08/11/24 acetaminophen 500 mg tablet 1,000 mg PO TID PRN prn 07/22/23 08/11/24 (Tylenol Extra Strength) albuterol sulfate 90 mcg/actuation 1 - 2 puff inhalation UD PRN 06/07/24 08/11/24 aerosol inhaler (Ventolin HFA) shortness of breath or wheezing gabapentin 300 mg capsule 300 mg PO QID 06/07/24 08/11/24 insulin NPH-regular 70-30 U-100 20 - 30 unit subcut UD 06/07/24 08/11/24 insulin 100 unit/mL subcutaneous pen nortriptyline 50 mg capsule 50 mg PO QPM 06/07/24 08/11/24 propranolol 20 mg tablet 60 mg PO QAM 06/07/24 08/11/24 rosuvastatin 5 mg tablet 5 mg PO QPM 06/07/24 08/11/24 galcanezumab-gnlm 120 mg/mL 240 mg subcut MONTHLY 08/11/24 08/11/24 subcutaneous syringe (Emgality) propranolol 20 mg tablet 40 mg PO QPM 08/11/24 08/11/24 Previous Rx's Medication Instructions Recorded pen needle, diabetic 31 gauge x #100 ea 07/03/22 3/16" (Pen Needle) blood-glucose meter (Prodigy #1 ea 07/15/22 Autocode Meter kit) lancets 28 gauge (Prodigy Twist #100 ea 07/15/22 Top Lancet) esomeprazole magnesium 40 mg 40 mg PO DAILY Barretts esophagus 09/09/23 capsule,delayed release (Nexium) #90 caps pen needle, diabetic 32 gauge x #100 ea 09/16/2332" (Pen Needle) lisinopril 2.5 mg tablet 2.5 mg PO QAM #90 tabs 11/01/23 celecoxib 100 mg capsule (Celebrex) 100 mg PO BID #180 caps 12/22/23 blood sugar diagnostic (Prodigy No #100 ea 03/22/24 Coding strips) bupropion HCl 150 mg tablet,12 hr 150 mg PO BID #180 ea 06/01/24 sustained-release Wheeled Walker #1 ea 06/07/24 Results & Data (ED) Vital Signs Vital Signs - 24 hr 08/11/24 15:02 08/11/24 15:02 08/11/24 15:22 Temperature 36.1 C L Temperature Source Oral Pulse Rate Pulse Rate [Right Finger] 53 L Respiratory Rate 18 Respiratory Effort / Characteristics Non-Labored Spontaneous Respiratory Depth Normal Respiratory Pattern Regular Blood Pressure [Right Arm] 141/70 H Blood Pressure Mean [Right Arm] 93 Pulse Oximetry 97 90 Oxygen Delivery Method Room Air Room Air Sepsis Recent Fever Within 48 Hours No Sepsis New/Unexplained Change in Mental Status No Sepsis Action Taken by Nursing No Action Required 08/11/24 16:17 08/11/24 19:00 08/11/24 20:00 Temperature Temperature Source Pulse Rate 56 L Pulse Rate [Right Finger] 39 L 49 L Respiratory Rate 18 18 Respiratory Effort / Characteristics Non-Labored Spontaneous Non-Labored Respiratory Depth Respiratory Pattern Blood Pressure [Right Arm] 171/51 H 148/69 H Blood Pressure Mean [Right Arm] 91 95 Pulse Oximetry 97 94 Oxygen Delivery Method Room Air Room Air Sepsis Recent Fever Within 48 Hours Sepsis New/Unexplained Change in Mental Status Sepsis Action Taken by Nursing 08/11/24 20:13 Temperature Temperature Source Pulse Rate 44 L Pulse Rate [Right Finger] Respiratory Rate Respiratory Effort / Characteristics Respiratory Depth Respiratory Pattern Blood Pressure [Right Arm] Blood Pressure Mean [Right Arm] Pulse Oximetry Oxygen Delivery Method Sepsis Recent Fever Within 48 Hours Sepsis New/Unexplained Change in Mental Status Sepsis Action Taken by Jail Medications Current Medication List: was personally reviewed by me Laboratory Data Attestation: I reviewed the patient's lab results. 08/11/24 16:42 08/11/24 16:42 Lab Results 08/11/24 08/11/24 08/11/24 Range/Units 16:42 17:18 18:28 WBC 10.84 H (4.8-10.8) K/ul RBC 4.33 (4.20-5.40) M/uL Hgb 13.0 (12.0-16.0) g/dl Hct 38.3 (37.0-47.0) % MCV 88.5 (80.0-100.0) fL MCH 30.0 (25.0-34.0) pg MCHC 33.9 (32.0-36.0) g/dL RDW Std Deviation 42.2 (36.4-46.3) fL RDW Coeff of Nery 13.1 (11.5-14.5) % Plt Count 271 (130-400) K/uL MPV 9.6 (9.4-12.4) fL Immature Gran % (Auto) 0.4 % Neut % (Auto) 75.5 % Lymph % (Auto) 15.4 % [place] % (Auto) 7.0 % Eos % (Auto) 1.4 % Baso % (Auto) 0.3 % Neut # (Auto) 8.19 H (1.40-6.50) K/uL Lymph # (Auto) 1.67 (1.20-3.40) K/uL [place] # (Auto) 0.76 H (0.11-0.59) K/uL Eos # (Auto) 0.15 (0.00-0.50) K/uL Baso # (Auto) 0.03 (0.00-0.20) K/uL Immature Gran # (Auto) 0.04 (0.01-0.20) K/uL PT 10.8 (9.0-12.0) Seconds INR 1.0 (0.9-1.1) APTT 26 (21-31) Seconds PTT Ratio 1.0 Sodium 140 (136-145) mmol/L Potassium 4.0 (3.5-5.1) mmol/L Chloride 108 H (98-107) mmol/L Carbon Dioxide 28 (21-32) mmol/L Anion Gap 4 (3-11) BUN 13 (6-23) mg/dl Creatinine 0.61 (0.6-1.2) mg/dl Est Cr Clr Drug Dosing 95.7 ml/min eGFR 95.52 BUN/Creatinine Ratio 21.3 H (10-20) Glucose 98 (70-99(Fasting)) mg/dl POC Glucose 62 L* (70-99) mg/dl Calcium 8.4 L (8.6-10.3) mg/dl Magnesium 1.8 (1.7-2.4) mg/dl Total Bilirubin 0.6 (0.2-1.0) mg/dl AST 11 L (13-39) U/L ALT 11 (7-52) U/L Alkaline Phosphatase 131 H (34-104) U/L Total Creatine Kinase 86 (26-192) U/L Troponin I High Sens 3.2 (0-14) pg/ml Total Protein 6.6 (6.0-8.3) gm/dl Albumin 3.9 (3.4-5.0) gm/dl Globulin 2.7 (2.5-4.0) gm/dl Albumin/Globulin Ratio 1.4 (0.9-2) Lipase 8 L (11-82) U/L Urine Color Yellow Urine Appearance Clear (Clear) Urine pH 7.0 (4.5-7.5) Ur Specific [place] 1.006 (1.000-1.030) Urine Protein Negative (Negative) Urine Glucose (UA) Negative (Negative) Urine Ketones Negative (Negative) Urine Blood Negative (Negative) Urine Nitrite Negative (Negative) Urine Bilirubin Negative (Negative) Urine Urobilinogen Negative (Negative) Ur Leukocyte Esterase Negative (Negative) 08/11/24 Range/Units 19:35 WBC (4.8-10.8) K/ul RBC (4.20-5.40) M/uL Hgb (12.0-16.0) g/dl Hct (37.0-47.0) % MCV (80.0-100.0) fL MCH (25.0-34.0) pg MCHC (32.0-36.0) g/dL RDW Std Deviation (36.4-46.3) fL RDW Coeff of Nery (11.5-14.5) % Plt Count (130-400) K/uL MPV (9.4-12.4) fL Immature Gran % (Auto) % Neut % (Auto) % Lymph % (Auto) % [place] % (Auto) % Eos % (Auto) % Baso % (Auto) % Neut # (Auto) (1.40-6.50) K/uL Lymph # (Auto) (1.20-3.40) K/uL [place] # (Auto) (0.11-0.59) K/uL Eos # (Auto) (0.00-0.50) K/uL Baso # (Auto) (0.00-0.20) K/uL Immature Gran # (Auto) (0.01-0.20) K/uL PT (9.0-12.0) Seconds INR (0.9-1.1) APTT (21-31) Seconds PTT Ratio Sodium (136-145) mmol/L Potassium (3.5-5.1) mmol/L Chloride (98-107) mmol/L Carbon Dioxide (21-32) mmol/L Anion Gap (3-11) BUN (6-23) mg/dl Creatinine (0.6-1.2) mg/dl Est Cr Clr Drug Dosing ml/min eGFR BUN/Creatinine Ratio (10-20) Glucose (70-99(Fasting)) mg/dl POC Glucose 58 L* (70-99) mg/dl Calcium (8.6-10.3) mg/dl Magnesium (1.7-2.4) mg/dl Total Bilirubin (0.2-1.0) mg/dl AST (13-39) U/L ALT (7-52) U/L Alkaline Phosphatase (34-104) U/L Total Creatine Kinase (26-192) U/L Troponin I High Sens (0-14) pg/ml Total Protein (6.0-8.3) gm/dl Albumin (3.4-5.0) gm/dl Globulin (2.5-4.0) gm/dl Albumin/Globulin Ratio (0.9-2) Lipase (11-82) U/L Urine Color Urine Appearance (Clear) Urine pH (4.5-7.5) Ur Specific [place] (1.000-1.030) Urine Protein (Negative) Urine Glucose (UA) (Negative) Urine Ketones (Negative) Urine Blood (Negative) Urine Nitrite (Negative) Urine Bilirubin (Negative) Urine Urobilinogen (Negative) Ur Leukocyte Esterase (Negative) Administered Medications Discontinued Medications Ioversol (Optiray 320 125ml) 119 ml IV ONCE ONE Stop: 08/11/24 17:52 Last Admin: 08/11/24 17:51 Dose: 119 ml Documented By: CLIFF Imaging Data Attestation: I personally reviewed and interpreted this imaging study as follows: My Impression: X-ray of the hip was obtained in the emergency department. My interpretation is no definite fracture, final report below. X-rays of both knees were obtained in the emergency department. My interpretation is no definite fracture or dislocation, final report below. CT of the brain was obtained in the emergency department. My interpretation is no intracranial hemorrhage or mass effect, final report below. Radiologist's Impression: Abdomen/Pelvis CT 08/11/24 15:22 Clinical History: Fall Technique: Axial computed tomography images were obtained of the abdomen and pelvis after the administration of intravenous contrast. Comparison is made to the prior CT dated 06/25/2022. Findings: The liver is overall of normal size, attenuation, and contour with no sign of cirrhosis or significant fatty infiltration. No liver mass lesion is seen. The portal vein is patent. The gallbladder has been removed. No bile duct dilatation is noted. The spleen is of normal size. No focal splenic lesion is evident. The pancreas appears normal with no sign of acute or chronic pancreatitis and no mass lesion noted. The pancreatic duct is of normal caliber. There is an unchanged 1.8 cm right adrenal nodule and there is an unchanged 1.4 cm left adrenal nodule There is a suspected small 3 mm left renal cyst. There is no hydronephrosis or perinephric stranding. No renal mass lesion is identified. The aorta is of normal caliber. No abdominal adenopathy is seen. The stomach appears normal. There is no sign of small bowel obstruction. The colon appears unremarkable. The appendix appears normal also. No free intraperitoneal fluid or air is identified. No distal ureteral or bladder calculi are seen. No bladder mass lesion is evident. The iliac arteries are of normal caliber. No pelvic adenopathy is noted. No fracture is identified. No focal osseous lesion is seen Impression: 1. No definite sign of abdominal organ injury after trauma 2. Unchanged bilateral adrenal nodules, indeterminate in nature but likely benign adenomas 3. Small left renal cyst Electronically signed by Sahil Hendrix 08-11-2024 7:[address] 08/11/24 15:22 Clinical History: Fall Technique: Axial computed tomography images were obtained of the cervical spine without intravenous contrast. Sagittal and coronal reconstructions were obtained Findings: No fracture is identified. No listhesis is seen. No focal osseous lesion is evident. There is atlantoaxial osteoarthritis. There is disc space narrowing and degenerative endplate change at C5-6 At C2-3, no disc herniation is identified. There is no spinal stenosis. The neural foramen are patent At C3-4, there is a mild disc bulge. There is no spinal stenosis. The neural foramen are patent At C4-5, there is a mild disc bulge. There is no spinal stenosis. The neural foramen are patent At C5-6, there is mild spinal stenosis due to a disc bulge and a suspected left paracentral disc protrusion. There is bilateral neural foramen narrowing that may affect the exiting C6 nerve roots At C6-7, there is a disc bulge without clear spinal cord deformity. There is right neural foramen narrowing that may affect the right C7 nerve root At C7-T1, no disc herniation is identified. There is no spinal stenosis. The neural foramen are patent The lung apices appear clear. The visualized soft tissues of the neck appear unremarkable. No foreign body is seen Impression: 1. No definite cervical spine fracture 2. Spinal stenosis at C5-6 3. Bilateral C5-6 and right C6-7 neural foramen narrowing, which may affect the exiting nerve roots Electronically signed by Sahil Hendrix 08-11-2024 6:55 PM Chest CTA 08/11/24 15:22 Clinical History: Fall Technique: Axial computed tomography images were obtained of the chest after the administration of intravenous contrast according to the CT angiogram protocol Comparison is made to the prior CT dated 06/25/2022 Findings: There is no definite sign of pulmonary embolism. There is a small right pleural effusion. There is mild subsegmental atelectasis in both lower lobes. There is an unchanged 3 mm nodule in the right lung apex. There is no left pleural effusion or pneumothorax. There is no sign of pulmonary fibrosis or other diffuse interstitial process. No endobronchial lesion is seen There is no mediastinal, hilar, or axillary adenopathy. The thoracic aorta appears unremarkable with no sign of aneurysm or dissection. There is no pericardial effusion No fracture is seen. No focal osseous lesion is evident Impression: 1. No definite sign of pulmonary embolism 2. Small right pleural effusion 3. Unchanged small right upper lobe nodule, almost certainly benign given the stability for more than 2 years ACT 112: Positive. There are findings on this exam that require communication between the performing entity and the patient following Patient Test Result Information Act ([place] ACT 112) guidelines. Electronically signed by Sahil Hendrix 08-11-2024 7:01 PM Elbow X-Ray 08/11/24 15:22 Exam: Left elbow. Reason for exam: Patient fell FINDINGS: No acute fracture, dislocation or destructive lesion is seen. No abnormal elevation of the posterior fat pad is seen. IMPRESSION: Negative for acute bony trauma left elbow. Electronically signed by Félix Sanders 08-11-2024 4:[address] 08/11/24 15:22 Clinical History: Fall Technique: Axial computed tomography images were obtained of the facial bones without intravenous contrast. Sagittal and coronal reconstructions were obtained Findings: No fracture is identified. No focal osseous lesion is noted. There is fluid and mucosal thickening in the right maxillary sinus. There is mild mucosal thickening in the ethmoid air cells. The orbits appear unremarkable. No foreign body is seen. The nasal septum is mildly deviated towards the right. No definite nasal polyp is noted Impression: 1. No definite facial bone fracture 2. Right maxillary sinusitis Electronically signed by Sahil Hendrix 08-11-2024 6:[address] 08/11/24 15:22 Clinical History: Fall. Findings: There is mild cerebral atrophy, within expected limits for the patient's age. Areas of decreased attenuation are seen within the periventricular white matter, likely representing chronic small vessel ischemic disease. There is no definite sign of acute or old infarction. No intracranial hemorrhage is evident. No definite mass lesion is seen on this noncontrast examination. There is no midline shift or other form of herniation. No hydrocephalus is seen. No fracture is identified. The mastoid air cells appear clear. Impression: 1. Cerebral atrophy and chronic small vessel ischemic disease 2. Otherwise unremarkable noncontrast CT of the brain Electronically signed by Sahil Hendrix 08-11-2024 6:47 PM Hip X-Ray 08/11/24 15:22 Exam: Left hip Reason for exam: Patient fell. FINDINGS: Joint spaces preserved. No acute fracture, dislocation or destructive bony process is noted. IMPRESSION: Negative for acute bony trauma left hip. Electronically signed by Félix Sanders 08-11-2024 4:24 PM Knee X-Ray 08/11/24 15:22 Exam: Limited views left knee. Reason for exam: Patient fell. FINDINGS: Limited exam consisting of AP and lateral views are submitted. Mild degenerative narrowing and spurring seen in the medial compartment. No acute fracture, dislocation or destructive bony process is seen at this time. IMPRESSION: 1. Negative for acute bony trauma. 2. DJD medial compartment. Electronically signed by Félix Sanders 08-11-2024 4:26 PM Knee X-Ray 08/11/24 15:22 Exam: Limited right knee. Reason for exam: Patient fell. FINDINGS: Limited exam consisting of AP and lateral views show mild narrowing medial compartment with some sclerosis. No acute fracture, dislocation or destructive bony process is seen. IMPRESSION: 1. Negative for acute bony trauma. 2. Mild DJD medial compartment. Electronically signed by Félix Sanders 08-11-2024 4:27 PM Shoulder X-Ray 08/11/24 15:22 Exam: Left shoulder Reason for exam: Patient fell FINDINGS: No acute fracture, dislocation or destructive bony process is noted. IMPRESSION: Negative for acute bony trauma left shoulder. Electronically signed by Félix Sanders 08-11-2024 4:29 PM Discharge Plan Visit Data Chief Complaint: Fall Stated Complaint: FALL, L SHOULDER & HIP PAIN ED Provider: Jose Smith Discharge Problem: Syncope, Hypoglycemia, Contusion of rib, Contusion of hip, Bradycardia Patient Disposition: Being Evaluated by Hospitalist Forms Stand Alone Forms: [facility] Prescriptions Prescriptions: No Action (DME) blood-glucose meter [[email or web address] Autocode Meter] Kit See Rx Instructions .Route Qty: 1 0RF Rx Instructions: TEST BSG THREE TIMES DAILY; DX CODE- E11.9 (DME) lancets [[email or web address] Twist Top Lancet] 28 gauge misc See Rx Instructions .Route Qty: 100 11RF Rx Instructions: TEST BSG THREE TIMES DAILY; DX CODE- E11.9 esomeprazole magnesium [Nexium] 40 mg capsule,delayed release(DR/EC) 40 mg PO DAILY Qty: 90 3RF lisinopril 2.5 mg tablet 2.5 mg PO QAM Qty: 90 4RF celecoxib [Celebrex] 100 mg capsule 100 mg PO BID Qty: 180 3RF (DME) pen needle, diabetic [Pen Needle] 32 gauge x 5/32" needle See Rx Instructions .Route Qty: 100 0RF Rx Instructions: Use to inject insulin twice daily as instructed. acetaminophen [Tylenol Extra Strength] 500 mg tablet 1,000 mg PO TID PRN (Reason: prn) (DME) Prodigy No Coding Strip See Rx Instructions .Route Qty: 100 11RF Rx Instructions: TEST BSG THREE TIMES DAILY; DX CODE-E11.9 bupropion HCl 150 mg tablet sustained-release 12 hr 150 mg PO BID Qty: 180 3RF (DME) Wheeled Walker Misc See Rx Instructions .MEDSUPPLY Qty: 1 0RF Rx Instructions: Wheeled walker with seat and hand breaks lidocaine [Salonpas (lidocaine)] 4 % Adhesive Patch,Medicated 1 patch TOPICAL QID PRN (Reason: Pain) magnesium 250 mg Tablet 250 mg PO DAILY cyanocobalamin (vitamin B-12) [Vitamin B-12] 2,000 mcg Tablet Extended Release 2,000 mcg PO DAILY cholecalciferol (vitamin D3) [Vitamin D3] 25 mcg (1,000 unit) Tablet 25 mcg PO DAILY (DME) pen needle, diabetic [Pen Needle] 31 gauge x 3/16" needle See Rx Instructions .Route Qty: 100 0RF Rx Instructions: As directed gabapentin 300 mg capsule 300 mg PO QID Rx Instructions: 1 cap po QID. albuterol sulfate [Ventolin HFA] 90 mcg/actuation HFA aerosol inhaler 1 - 2 puff inhalation UD PRN (Reason: shortness of breath or wheezing) Rx Instructions: 1-2 INH 4-6 PRN; propranolol 20 mg tablet 60 mg PO QAM nortriptyline 50 mg capsule 50 mg PO QPM rosuvastatin 5 mg tablet 5 mg PO QPM insulin NPH and regular human 100 unit/mL (70-30) insulin pen 20 - 30 unit subcut UD Patient Comments: 20 units Rx Instructions: 30 unit subcutaneously in Am with breakfast 20 units in evening with dinner Emgality Syringe 120 mg/mL syringe 240 mg subcut MONTHLY Rx Instructions: TAKES ON THE OF THE MONTH AT 1530. propranolol 20 mg tablet 40 mg PO QPM Referrals Referrals: Chucho Mejia III, CRNP [Primary Care Provider] -
--- NOTE | 2024-08-11 16:23 | XRay Report ---
Exam: Left elbow. Reason for exam: Patient fell FINDINGS: No acute fracture, dislocation or destructive lesion is seen. No abnormal elevation of the posterior fat pad is seen. IMPRESSION: Negative for acute bony trauma left elbow. Electronically signed by Félix Sanders 08-11-2024 4:22 PM
--- NOTE | 2024-08-11 16:25 | XRay Report ---
Exam: Left hip Reason for exam: Patient fell. FINDINGS: Joint spaces preserved. No acute fracture, dislocation or destructive bony process is noted. IMPRESSION: Negative for acute bony trauma left hip. Electronically signed by Félix Sanders 08-11-2024 4:24 PM
--- NOTE | 2024-08-11 16:27 | XRay Report ---
Exam: Limited views left knee. Reason for exam: Patient fell. FINDINGS: Limited exam consisting of AP and lateral views are submitted. Mild degenerative narrowing and spurring seen in the medial compartment. No acute fracture, dislocation or destructive bony process is seen at this time. IMPRESSION: 1. Negative for acute bony trauma. 2. DJD medial compartment. Electronically signed by Félix Sanders 08-11-2024 4:26 PM
--- NOTE | 2024-08-11 16:29 | XRay Report ---
Exam: Limited right knee. Reason for exam: Patient fell. FINDINGS: Limited exam consisting of AP and lateral views show mild narrowing medial compartment with some sclerosis. No acute fracture, dislocation or destructive bony process is seen. IMPRESSION: 1. Negative for acute bony trauma. 2. Mild DJD medial compartment. Electronically signed by Félix Sanders 08-11-2024 4:27 PM
--- NOTE | 2024-08-11 16:29 | XRay Report ---
Exam: Left shoulder Reason for exam: Patient fell FINDINGS: No acute fracture, dislocation or destructive bony process is noted. IMPRESSION: Negative for acute bony trauma left shoulder. Electronically signed by Félix Sanders 08-11-2024 4:29 PM
[2024-08-11 17:07] LABS: Basophils # (auto) 0.03 K/uL (0.00-0.20); Basophils % (auto) 0.3 %; Eosinophils # (auto) 0.15 K/uL (0.00-0.50); Eosinophils % (auto) 1.4 %; Hematocrit (blood only) 38.3 % (37.0-47.0); Immature Granulocytes # (auto) 0.04 K/uL (0.01-0.20); Immature Granulocytes % (auto) 0.4 %; Lymphocytes # (auto) 1.67 K/uL (1.20-3.40); Lymphocytes % (auto) 15.4 %; Mean Corpuscular Hgb Conc 33.9 g/dL (32.0-36.0); Mean Corpuscular Volume 88.5 fL (80.0-100.0); Mean Platelet Volume 9.6 fL (9.4-12.4); Monocytes # (auto) 0.76 K/uL (0.11-0.59); Neutrophils # (auto) 8.19 K/uL (1.40-6.50); Neutrophils % (auto) 75.5 %; Platelet Count 271 K/uL (130-400); RDW Coefficient of Variation 13.1 % (11.5-14.5); RDW Standard Deviation 42.2 fL (36.4-46.3); Red Blood Count 4.33 M/uL (4.20-5.40); White Blood Count 10.84 K/ul (4.8-10.8)
[2024-08-11 17:26] LABS: Albumin Globulin Ratio 1.4 (0.9-2); Albumin Level 3.9 gm/dl (3.4-5.0); BUN Creatinine Ratio 21.3 (10-20); Bilirubin,Total 0.6 mg/dl (0.2-1.0); Calcium 8.4 mg/dl (8.6-10.3); Creatinine Clr Calc Pharmacy 95.7 ml/min; Globulin 2.7 gm/dl (2.5-4.0); Magnesium 1.8 mg/dl (1.7-2.4); Total Protein 6.6 gm/dl (6.0-8.3)
[2024-08-11 17:31] LABS: Troponin I High Sensitivity 3.2 pg/ml (0-14)
[2024-08-11 17:36] LABS: Partial Thromboplastin Time 26 Seconds (21-31); Prothrombin Time 10.8 Seconds (9.0-12.0)
[2024-08-11 17:42] LABS: Appearance Urine Clear (Clear); Bilirubin Urine Negative (Negative); Blood Urine Negative (Negative); Color Urine Yellow; Glucose Urine UA Negative (Negative); Ketones Urine Negative (Negative); Leukocyte Esterase Urine Negative (Negative); Nitrite Urine Negative (Negative); Protein Urine Negative (Negative); Specific Gravity Urine 1.006 (1.000-1.030); Urobilinogen Urine Negative (Negative)
[2024-08-11] MEDS: OPTIRAY 320 125ml IV ONE (17:51)
--- NOTE | 2024-08-11 18:47 | CT Scan Report ---
Clinical History: Fall. Findings: There is mild cerebral atrophy, within expected limits for the patient's age. Areas of decreased attenuation are seen within the periventricular white matter, likely representing chronic small vessel ischemic disease. There is no definite sign of acute or old infarction. No intracranial hemorrhage is evident. No definite mass lesion is seen on this noncontrast examination. There is no midline shift or other form of herniation. No hydrocephalus is seen. No fracture is identified. The mastoid air cells appear clear. Impression: 1. Cerebral atrophy and chronic small vessel ischemic disease 2. Otherwise unremarkable noncontrast CT of the brain Electronically signed by Sahil Hendrix 08-11-2024 6:47 PM
--- NOTE | 2024-08-11 18:49 | CT Scan Report ---
Clinical History: Fall Technique: Axial computed tomography images were obtained of the facial bones without intravenous contrast. Sagittal and coronal reconstructions were obtained Findings: No fracture is identified. No focal osseous lesion is noted. There is fluid and mucosal thickening in the right maxillary sinus. There is mild mucosal thickening in the ethmoid air cells. The orbits appear unremarkable. No foreign body is seen. The nasal septum is mildly deviated towards the right. No definite nasal polyp is noted Impression: 1. No definite facial bone fracture 2. Right maxillary sinusitis Electronically signed by Sahil Hendrix 08-11-2024 6:49 PM
--- NOTE | 2024-08-11 18:55 | CT Scan Report ---
Clinical History: Fall Technique: Axial computed tomography images were obtained of the cervical spine without intravenous contrast. Sagittal and coronal reconstructions were obtained Findings: No fracture is identified. No listhesis is seen. No focal osseous lesion is evident. There is atlantoaxial osteoarthritis. There is disc space narrowing and degenerative endplate change at C5-6 At C2-3, no disc herniation is identified. There is no spinal stenosis. The neural foramen are patent At C3-4, there is a mild disc bulge. There is no spinal stenosis. The neural foramen are patent At C4-5, there is a mild disc bulge. There is no spinal stenosis. The neural foramen are patent At C5-6, there is mild spinal stenosis due to a disc bulge and a suspected left paracentral disc protrusion. There is bilateral neural foramen narrowing that may affect the exiting C6 nerve roots At C6-7, there is a disc bulge without clear spinal cord deformity. There is right neural foramen narrowing that may affect the right C7 nerve root At C7-T1, no disc herniation is identified. There is no spinal stenosis. The neural foramen are patent The lung apices appear clear. The visualized soft tissues of the neck appear unremarkable. No foreign body is seen Impression: 1. No definite cervical spine fracture 2. Spinal stenosis at C5-6 3. Bilateral C5-6 and right C6-7 neural foramen narrowing, which may affect the exiting nerve roots Electronically signed by Sahil Hendrix 08-11-2024 6:55 PM
--- NOTE | 2024-08-11 19:02 | CT Scan Report ---
Clinical History: Fall Technique: Axial computed tomography images were obtained of the chest after the administration of intravenous contrast according to the CT angiogram protocol Comparison is made to the prior CT dated 06/25/2022 Findings: There is no definite sign of pulmonary embolism. There is a small right pleural effusion. There is mild subsegmental atelectasis in both lower lobes. There is an unchanged 3 mm nodule in the right lung apex. There is no left pleural effusion or pneumothorax. There is no sign of pulmonary fibrosis or other diffuse interstitial process. No endobronchial lesion is seen There is no mediastinal, hilar, or axillary adenopathy. The thoracic aorta appears unremarkable with no sign of aneurysm or dissection. There is no pericardial effusion No fracture is seen. No focal osseous lesion is evident Impression: 1. No definite sign of pulmonary embolism 2. Small right pleural effusion 3. Unchanged small right upper lobe nodule, almost certainly benign given the stability for more than 2 years ACT 112: Positive. There are findings on this exam that require communication between the performing entity and the patient following Patient Test Result Information Act ([place] ACT 112) guidelines. Electronically signed by Sahil Hendrix 08-11-2024 7:01 PM
--- NOTE | 2024-08-11 19:06 | CT Scan Report ---
Clinical History: Fall Technique: Axial computed tomography images were obtained of the abdomen and pelvis after the administration of intravenous contrast. Comparison is made to the prior CT dated 06/25/2022. Findings: The liver is overall of normal size, attenuation, and contour with no sign of cirrhosis or significant fatty infiltration. No liver mass lesion is seen. The portal vein is patent. The gallbladder has been removed. No bile duct dilatation is noted. The spleen is of normal size. No focal splenic lesion is evident. The pancreas appears normal with no sign of acute or chronic pancreatitis and no mass lesion noted. The pancreatic duct is of normal caliber. There is an unchanged 1.8 cm right adrenal nodule and there is an unchanged 1.4 cm left adrenal nodule There is a suspected small 3 mm left renal cyst. There is no hydronephrosis or perinephric stranding. No renal mass lesion is identified. The aorta is of normal caliber. No abdominal adenopathy is seen. The stomach appears normal. There is no sign of small bowel obstruction. The colon appears unremarkable. The appendix appears normal also. No free intraperitoneal fluid or air is identified. No distal ureteral or bladder calculi are seen. No bladder mass lesion is evident. The iliac arteries are of normal caliber. No pelvic adenopathy is noted. No fracture is identified. No focal osseous lesion is seen Impression: 1. No definite sign of abdominal organ injury after trauma 2. Unchanged bilateral adrenal nodules, indeterminate in nature but likely benign adenomas 3. Small left renal cyst Electronically signed by Sahil Hendrix 08-11-2024 7:05 PM
--- NOTE | 2024-08-11 20:48 | Electrocardiogram Report ---
Test Reason : Blood Pressure : */* mmHG Vent. Rate : 49 BPM Atrial Rate : * BPM P-R Int : * ms QRS Dur : 146 ms QT Int : 526 ms P-R-T Axes : * 8 17 degrees QTcB Int : 475 ms Junctional rhythm Right bundle branch block Abnormal ECG When compared with ECG of 25-Jun-2022 12:59, Wide QRS rhythm has replaced Sinus rhythm Vent. rate has decreased by 38 bpm Confirmed by Tu Batista ([id number]) on 08/11/2024 8:47:52 PM Referred By: Confirmed By: Tu Batista
--- NOTE | 2024-08-11 20:57 | History & Physical Report ---
Date of Service August 11, 2024 Assessment & Plan (1) Syncope: (2) Bradycardia: (3) Tremor: (4) Diabetes: (5) Hyperlipidemia: (6) GERD (gastroesophageal reflux disease): (7) Anxiety and depression: (8) COPD (chronic obstructive pulmonary disease): Plan 69-year-old female with history of hypertension, hyperlipidemia, diabetes, COPD and tremor presenting from home with 4 months of syncopal episodes increasing in frequency over the last week. Patient found to be in junctional bradycardia with rates in the 30s and 40s. #Syncopelikely secondary to bradycardia arrhythmia. Possibly secondary to episodes of low blood sugar as well Admit to PCU Check orthostatic vital signs x 1 Check 2D echo Check cortisol, TSH and Lyme serology Cardiology consult appreciated N.p.o. after midnight in case pacer is indicated #Bradycardiapatient seems to be flipping between sinus bradycardia and junctional bradycardia with review of traffic monitor specialist strip. Possible cause of her syncopal events. EKG is nonischemic, troponin x 1 = negative, electrolytes are within normal limits. Patient is on propranolol for benign essential tremor. Check echo Hold propranolol #Tremorpatient on propranolol for management of her tremor Hold propranolol in setting of bradycardia #Diabetes Blood glucose Low on arrival at 58. Now is 139 following a meal. Hemoglobin A1c = 7.6 on 03/20/2024. Patient is on NPH at home for diabetes management. Check blood sugars every 2 hours to ensure they do not drop again Hold insulin for now Continue lisinopril 2.5 mg p.o. every morning #Hyperlipidemia Continue Crestor 5 mg p.o. every afternoon #GERD Continue Protonix 40 mg p.o. daily #Anxiety and depression Continue bupropion 150 mg p.o. twice daily #COPDpatient denies cough, shortness of breath or wheeze Albuterol as needed F/E/N -saline lock, 1 g of calcium gluconate ordered, consistent carb diet as tolerated Prophylaxis SCDs to bilateral lower extremities Codefull per discussion with patient History of Present Illness Chief Complaint: syncope Primary Care Provider: Chucho Mejia, III, GRETEL Lonny Hope is a 69-year-old female with history of hypertension, hyperlipidemia, GERD, COPD and tremor presenting with multiple episodes of syncope occurring today. Also reports a syncopal episode on 08/06/2024 and 08/08/2024. These episodes however, have been going on intermittently since the end of March 2024. They have increased in frequency since that time and specifically over the last week. Patient reports that her episodes frequently occur after she stands. She becomes diaphoretic, feels "uncomfortable" then passes out. She has had episodes where his she has been out for 20 to 30 minutes at a time. Episodes are unwitnessed as patient lives alone. She denies chest pain, palpitations, shortness of breath, nausea, vomiting preceding or following the events. She has never had evidence of tongue biting or incontinence. She does report some mild edema at the ankle otherwise denies shortness of breath, orthopnea, weight gain. No additional complaints at this time. Upon review of telemetry in the ER patient appears to be in sinus bradycardia with episodes of junctional bradycardia (rates 30s to 40s). Daughter is at bedside and reports that when patient's heart rate dips into the 30s patient seems to become less responsive with a blank stare. ER course: Tylenol 1 g p.o. Allergies Allergy/AdvReac Type Severity Reaction Status Date / Time pine nut Allergy Severe "evergreen Verified 08/11/24 18:27 sap" allergy, anaphylaxis salmon oil Allergy Severe ANAPHYLAXIS Verified 08/11/24 18:27 citalopram Allergy Intermediate Hives Verified 08/11/24 18:27 venlafaxine Allergy Intermediate Rash Verified 08/11/24 18:27 quetiapine Allergy Mild Rash Verified 08/11/24 18:27 latex Allergy Unknown TO POWDER Verified 08/11/24 18:27 W/ LATEX, JAK. NON-LATEX FREE IV'S [id number] ibuprofen AdvReac Mild "ABD Verified 08/11/24 18:27 DISTRESS" PINE SAP Allergy Severe Anaphylaxis Uncoded 08/11/24 18:27 metal Allergy Mild w/ Uncoded 08/11/24 18:27 prolonged exposure changes skin color and rash Home Medications Medication Instructions Recorded Confirmed Type pen needle, diabetic 31 gauge x #100 ea 07/03/22 07/28/24 Rx 3/16" (Pen Needle) blood-glucose meter (Prodigy #1 ea 07/15/22 07/28/24 Rx Autocode Meter kit) lancets 28 gauge (Prodigy Twist #100 ea 07/15/22 07/28/24 Rx Top Lancet) lidocaine 4 % topical patch 1 patch topical QID PRN Pain 08/24/22 08/11/24 History (Salonpas (lidocaine)) cholecalciferol (vitamin D3) 25 25 mcg PO DAILY 06/14/23 08/11/24 History mcg (1,000 unit) tablet (Vitamin D3) cyanocobalamin (vitamin B-12) 2,000 mcg PO DAILY 06/14/23 08/11/24 History 2,000 mcg tablet,extended release (Vitamin B-12 ER) magnesium 250 mg tablet 250 mg PO DAILY 06/14/23 08/11/24 History acetaminophen 500 mg tablet 1,000 mg PO TID PRN prn 07/22/23 08/11/24 History (Tylenol Extra Strength) esomeprazole magnesium 40 mg 40 mg PO DAILY Barretts esophagus 09/09/23 08/11/24 Rx capsule,delayed release (Nexium) #90 caps pen needle, diabetic 32 gauge x #100 ea 09/16/23 07/28/24 Rx 5/32" (Pen Needle) lisinopril 2.5 mg tablet 2.5 mg PO QAM #90 tabs 11/01/23 08/11/24 Rx celecoxib 100 mg capsule (Celebrex) 100 mg PO BID #180 caps 12/22/23 08/11/24 Rx blood sugar diagnostic (Prodigy No #100 ea 03/22/24 07/28/24 Rx Coding strips) bupropion HCl 150 mg tablet,12 hr 150 mg PO BID #180 ea 06/01/24 08/11/24 Rx sustained-release Wheeled Walker #1 ea 06/07/24 07/28/24 Rx albuterol sulfate 90 mcg/actuation 1 - 2 puff inhalation UD PRN 06/07/24 08/11/24 History aerosol inhaler (Ventolin HFA) shortness of breath or wheezing gabapentin 300 mg capsule 300 mg PO QID 06/07/24 08/11/24 History insulin NPH-regular 70-30 U-100 20 - 30 unit subcut UD 06/07/24 08/11/24 History insulin 100 unit/mL subcutaneous pen nortriptyline 50 mg capsule 50 mg PO QPM 06/07/24 08/11/24 History propranolol 20 mg tablet 60 mg PO QAM 06/07/24 08/11/24 History rosuvastatin 5 mg tablet 5 mg PO QPM 06/07/24 08/11/24 History galcanezumab-gnlm 120 mg/mL 240 mg subcut MONTHLY 08/11/24 08/11/24 History subcutaneous syringe (Emgality) propranolol 20 mg tablet 40 mg PO QPM 08/11/24 08/11/24 History Past Med/Surg History Problem List Bradycardia (Acute) Contusion of hip (Acute) Contusion of rib (Acute) Hypoglycemia (Acute) Syncope (Acute) Postmenopausal Essential tremor (Chronic) Flatulence Gastric intestinal metaplasia Barretts esophagus Epigastric pain Migraine without aura and without status migrainosus, not intractable Tremor Hyperlipidemia (Chronic) Lumbosacral radiculopathy Arthritis Nutritional deficiency Obesity Change of skin color Neuropathy Swelling of both lower extremities Anxiety and depression (Chronic) Lumbar facet joint syndrome Thoracic facet joint syndrome Legally blind Lumbar back pain with radiculopathy affecting left lower extremity Thoracic back pain Thoracic disc disease with myelopathy Lumbar disc disease with radiculopathy Diabetic retinopathy (Chronic) Headache, migraine Diabetes (Chronic ~07/03/22) Medical History Family history of reaction to anesthesia father difficulty waking History of falling Patient has fallen 5 times since 03/2024, most recently 05/17, 05/22, and 05/23, she feels she may have lost consciousness and hit her head, she fo llows with Chucho Mejia, last visit 06/01/2024, she is to meet with a mental health case manager, Brenna on 06/12/2024 regarding possible assisted living Legally blind Thoracic back pain Lumbar back pain with radiculopathy affecting left lower extremity Hyperlipidemia Migraines Diabetes Arthritis GERD (gastroesophageal reflux disease) Gastric intestinal metaplasia Essential tremor Barretts esophagus Anxiety and depression Diabetic neuropathy Diabetic retinopathy blind in right eye Hx of pneumococcal pneumonia resolved Pain management has started following w/ pain management clinic Hx of cardiac murmur does not follow w/ cardio, found as a child, no issues Awareness under anesthesia PTSD (post-traumatic stress disorder) HTN (hypertension) Stroke reports having stroke right eye; unsure when COPD (chronic obstructive pulmonary disease) rarely uses prn inahlers Surgical History S/P cataract surgery BOTH EYES 2022 Hx of colonoscopy Hx of excision of mass left knee; benign Hx of dilation of urethra History of endometrial ablation S/P lumpectomy, left breast H/O tubal ligation History of cholecystectomy Family History Mother Cancer Restless leg syndrome Grandfather (Maternal) Cancer Sister Cancer Neuropathy Stroke Congestive heart failure Daughter Breast cancer X2 Grandmother (Maternal) Myocardial infarction Grandmother (Paternal) Myocardial infarction Sister Myocardial infarction Denies family history of Ovarian cancer Prostate cancer Colorectal cancer Social History Smoking Status: Former smoker Tobacco Type: Cigarettes Age Started Using Tobacco: 16; Age Quit Using Tobacco: 68; packs per day: 1; Second Hand Exposure: No; Do You Dip or Chew Tobacco: No; Hx Alcohol Use: No Hx Substance Use: No Preferred Language: Serbian Communication Ability: Impaired Communication Ability Comment: legally blind, difficulty reading Visual Impairment: No Limitations Hearing Ability: Normal Fuel Retrofitting Technician Required: No Beliefs That Will Affect Care: None marital status: Current Living Situation: Alone current occupational status: employed current occupation: [employer] How many Children do You have: 2 Feels Safe at Home: Yes Childhood Exposure to Second-Hand Smoke: Yes Diet: diabetic and low carbohydrate Diet Comment: low carb caffeine: No during the past year weight has: remained stable Dental Care, Regularly: No Physical Activity Frequency: 5-6 Times per Week Seatbelt Use: always Sunscreen Use: Yes Assistive Devices: Cane and Glasses Review of Systems Review of Systems: All systems reviewed & are unremarkable except as noted in HPI & below Physical Exam Physical Exam: General: patient resting comfortably, NAD, non-toxic in appearance, AA&O x 4 Skin: warm, dry, intact, no rashes or lesions HEENT: NC/AT, PERRL, EOMI, anicteric sclera, conjunctiva without injection, external ear normal to inspection and nontender, nares patent, moist mucus membranes, dentition intact, no oropharyngeal lesions, neck supple, trachea midline, no LAD, no thyromegaly, no JVD Heart: +S1/S2, regular, bradycardic, no m/r/g Lungs: equal air entry bilaterally, no rales/rhonchi/wheezes Abd: +BS, soft, NT/ND, no masses/organomegaly/ascites Ext: warm, 2+ pulses in UE/LE bilaterally, no clubbing/cyanosis, trace edema Neuro: nonfocal, patient AA&O x 4, speech intact, no facial droop, moving all extremities on command with equal strength 5/5 Results & Data Results & Data Vital Signs (Past 12 Hours) Vital Signs Temp Pulse Pulse Resp BP Pulse Ox O2 Del Method 08/11/24 20:13 44 L 08/11/24 20:00 49 L 18 148/69 H 94 Room Air 08/11/24 19:00 39 L 18 171/51 H 97 Room Air 08/11/24 16:17 56 L 08/11/24 15:22 90 Room Air 08/11/24 15:02 36.1 C L 53 L 18 141/70 H 97 Room Air Laboratory Results Laboratory Results WBC 10.84 K/ul (4.8-10.8) H 08/11/24 16:42 RBC 4.33 M/uL (4.20-5.40) 08/11/24 16:42 Hgb 13.0 g/dl (12.0-16.0) 08/11/24 16:42 Hct 38.3 % (37.0-47.0) 08/11/24 16:42 MCV 88.5 fL (80.0-100.0) 08/11/24 16:42 MCH 30.0 pg (25.0-34.0) 08/11/24 16:42 MCHC 33.9 g/dL (32.0-36.0) 08/11/24 16:42 RDW Std Deviation 42.2 fL (36.4-46.3) 08/11/24 16:42 RDW Coeff of Nery 13.1 % (11.5-14.5) 08/11/24 16:42 Plt Count 271 K/uL (130-400) 08/11/24 16:42 MPV 9.6 fL (9.4-12.4) 08/11/24 16:42 Immature Gran % (Auto) 0.4 % 08/11/24 16:42 Neut % (Auto) 75.5 % 08/11/24 16:42 Lymph % (Auto) 15.4 % 08/11/24 16:42 [place] % (Auto) 7.0 % 08/11/24 16:42 Eos % (Auto) 1.4 % 08/11/24 16:42 Baso % (Auto) 0.3 % 08/11/24 16:42 Neut # (Auto) 8.19 K/uL (1.40-6.50) H 08/11/24 16:42 Lymph # (Auto) 1.67 K/uL (1.20-3.40) 08/11/24 16:42 [place] # (Auto) 0.76 K/uL (0.11-0.59) H 08/11/24 16:42 Eos # (Auto) 0.15 K/uL (0.00-0.50) 08/11/24 16:42 Baso # (Auto) 0.03 K/uL (0.00-0.20) 08/11/24 16:42 Immature Gran # (Auto) 0.04 K/uL (0.01-0.20) 08/11/24 16:42 PT 10.8 Seconds (9.0-12.0) 08/11/24 16:42 INR 1.0 (0.9-1.1) 08/11/24 16:42 APTT 26 Seconds (21-31) 08/11/24 16:42 PTT Ratio 1.0 08/11/24 16:42 Sodium 140 mmol/L (136-145) 08/11/24 16:42 Potassium 4.0 mmol/L (3.5-5.1) 08/11/24 16:42 Chloride 108 mmol/L (98-107) H 08/11/24 16:42 Carbon Dioxide 28 mmol/L (21-32) 08/11/24 16:42 Anion Gap 4 (3-11) 08/11/24 16:42 BUN 13 mg/dl (6-23) 08/11/24 16:42 Creatinine 0.61 mg/dl (0.6-1.2) 08/11/24 16:42 Est Cr Clr Drug Dosing 95.7 ml/min 08/11/24 16:42 eGFR 95.52 08/11/24 16:42 BUN/Creatinine Ratio 21.3 (10-20) H 08/11/24 16:42 Glucose 98 mg/dl (70-99(Fasting)) 08/11/24 16:42 POC Glucose 77 mg/dl (70-99) 08/11/24 21:20 Calcium 8.4 mg/dl (8.6-10.3) L 08/11/24 16:42 Magnesium 1.8 mg/dl (1.7-2.4) 08/11/24 16:42 Total Bilirubin 0.6 mg/dl (0.2-1.0) 08/11/24 16:42 AST 11 U/L (13-39) L 08/11/24 16:42 ALT 11 U/L (7-52) 08/11/24 16:42 Alkaline Phosphatase 131 U/L (34-104) H 08/11/24 16:42 Total Creatine Kinase 86 U/L (26-192) 08/11/24 16:42 Troponin I High Sens 3.2 pg/ml (0-14) 08/11/24 16:42 Total Protein 6.6 gm/dl (6.0-8.3) 08/11/24 16:42 Albumin 3.9 gm/dl (3.4-5.0) 08/11/24 16:42 Globulin 2.7 gm/dl (2.5-4.0) 08/11/24 16:42 Albumin/Globulin Ratio 1.4 (0.9-2) 08/11/24 16:42 Lipase 8 U/L (11-82) L 08/11/24 16:42 Urine Color Yellow 08/11/24 17:18 Urine Appearance Clear (Clear) 08/11/24 17:18 Urine pH 7.0 (4.5-7.5) 08/11/24 17:18 Ur Specific [place] 1.006 (1.000-1.030) 08/11/24 17:18 Urine Protein Negative (Negative) 08/11/24 17:18 Urine Glucose (UA) Negative (Negative) 08/11/24 17:18 Urine Ketones Negative (Negative) 08/11/24 17:18 Urine Blood Negative (Negative) 08/11/24 17:18 Urine Nitrite Negative (Negative) 08/11/24 17:18 Urine Bilirubin Negative (Negative) 08/11/24 17:18 Urine Urobilinogen Negative (Negative) 08/11/24 17:18 Ur Leukocyte Esterase Negative (Negative) 08/11/24 17:18 Impressions Abdomen/Pelvis CT 08/11/24 15:22 Clinical History: Fall Technique: Axial computed tomography images were obtained of the abdomen and pelvis after the administration of intravenous contrast. Comparison is made to the prior CT dated 06/25/2022. Findings: The liver is overall of normal size, attenuation, and contour with no sign of cirrhosis or significant fatty infiltration. No liver mass lesion is seen. The portal vein is patent. The gallbladder has been removed. No bile duct dilatation is noted. The spleen is of normal size. No focal splenic lesion is evident. The pancreas appears normal with no sign of acute or chronic pancreatitis and no mass lesion noted. The pancreatic duct is of normal caliber. There is an unchanged 1.8 cm right adrenal nodule and there is an unchanged 1.4 cm left adrenal nodule There is a suspected small 3 mm left renal cyst. There is no hydronephrosis or perinephric stranding. No renal mass lesion is identified. The aorta is of normal caliber. No abdominal adenopathy is seen. The stomach appears normal. There is no sign of small bowel obstruction. The colon appears unremarkable. The appendix appears normal also. No free intraperitoneal fluid or air is identified. No distal ureteral or bladder calculi are seen. No bladder mass lesion is evident. The iliac arteries are of normal caliber. No pelvic adenopathy is noted. No fracture is identified. No focal osseous lesion is seen Impression: 1. No definite sign of abdominal organ injury after trauma 2. Unchanged bilateral adrenal nodules, indeterminate in nature but likely benign adenomas 3. Small left renal cyst Electronically signed by Sahil Hendrix 08-11-2024 7:[address] 08/11/24 15:22 Clinical History: Fall Technique: Axial computed tomography images were obtained of the cervical spine without intravenous contrast. Sagittal and coronal reconstructions were obtained Findings: No fracture is identified. No listhesis is seen. No focal osseous lesion is evident. There is atlantoaxial osteoarthritis. There is disc space narrowing and degenerative endplate change at C5-6 At C2-3, no disc herniation is identified. There is no spinal stenosis. The neural foramen are patent At C3-4, there is a mild disc bulge. There is no spinal stenosis. The neural foramen are patent At C4-5, there is a mild disc bulge. There is no spinal stenosis. The neural foramen are patent At C5-6, there is mild spinal stenosis due to a disc bulge and a suspected left paracentral disc protrusion. There is bilateral neural foramen narrowing that may affect the exiting C6 nerve roots At C6-7, there is a disc bulge without clear spinal cord deformity. There is right neural foramen narrowing that may affect the right C7 nerve root At C7-T1, no disc herniation is identified. There is no spinal stenosis. The neural foramen are patent The lung apices appear clear. The visualized soft tissues of the neck appear unremarkable. No foreign body is seen Impression: 1. No definite cervical spine fracture 2. Spinal stenosis at C5-6 3. Bilateral C5-6 and right C6-7 neural foramen narrowing, which may affect the exiting nerve roots Electronically signed by Sahil Hendrix 08-11-2024 6:55 PM Chest CTA 08/11/24 15:22 Clinical History: Fall Technique: Axial computed tomography images were obtained of the chest after the administration of intravenous contrast according to the CT angiogram protocol Comparison is made to the prior CT dated 06/25/2022 Findings: There is no definite sign of pulmonary embolism. There is a small right pleural effusion. There is mild subsegmental atelectasis in both lower lobes. There is an unchanged 3 mm nodule in the right lung apex. There is no left pleural effusion or pneumothorax. There is no sign of pulmonary fibrosis or other diffuse interstitial process. No endobronchial lesion is seen There is no mediastinal, hilar, or axillary adenopathy. The thoracic aorta appears unremarkable with no sign of aneurysm or dissection. There is no pericardial effusion No fracture is seen. No focal osseous lesion is evident Impression: 1. No definite sign of pulmonary embolism 2. Small right pleural effusion 3. Unchanged small right upper lobe nodule, almost certainly benign given the stability for more than 2 years ACT 112: Positive. There are findings on this exam that require communication between the performing entity and the patient following Patient Test Result Information Act ([place] ACT 112) guidelines. Electronically signed by Sahil Hendrix 08-11-2024 7:01 PM Elbow X-Ray 08/11/24 15:22 Exam: Left elbow. Reason for exam: Patient fell FINDINGS: No acute fracture, dislocation or destructive lesion is seen. No abnormal elevation of the posterior fat pad is seen. IMPRESSION: Negative for acute bony trauma left elbow. Electronically signed by Félix Sanders 08-11-2024 4:[address] 08/11/24 15:22 Clinical History: Fall Technique: Axial computed tomography images were obtained of the facial bones without intravenous contrast. Sagittal and coronal reconstructions were obtained Findings: No fracture is identified. No focal osseous lesion is noted. There is fluid and mucosal thickening in the right maxillary sinus. There is mild mucosal thickening in the ethmoid air cells. The orbits appear unremarkable. No foreign body is seen. The nasal septum is mildly deviated towards the right. No definite nasal polyp is noted Impression: 1. No definite facial bone fracture 2. Right maxillary sinusitis Electronically signed by Sahil Hendrix 08-11-2024 6:[address] 08/11/24 15:22 Clinical History: Fall. Findings: There is mild cerebral atrophy, within expected limits for the patient's age. Areas of decreased attenuation are seen within the periventricular white matter, likely representing chronic small vessel ischemic disease. There is no definite sign of acute or old infarction. No intracranial hemorrhage is evident. No definite mass lesion is seen on this noncontrast examination. There is no midline shift or other form of herniation. No hydrocephalus is seen. No fracture is identified. The mastoid air cells appear clear. Impression: 1. Cerebral atrophy and chronic small vessel ischemic disease 2. Otherwise unremarkable noncontrast CT of the brain Electronically signed by Sahil Hendrix 08-11-2024 6:47 PM Hip X-Ray 08/11/24 15:22 Exam: Left hip Reason for exam: Patient fell. FINDINGS: Joint spaces preserved. No acute fracture, dislocation or destructive bony process is noted. IMPRESSION: Negative for acute bony trauma left hip. Electronically signed by Félix Sanders 08-11-2024 4:24 PM Knee X-Ray 08/11/24 15:22 Exam: Limited right knee. Reason for exam: Patient fell. FINDINGS: Limited exam consisting of AP and lateral views show mild narrowing medial compartment with some sclerosis. No acute fracture, dislocation or destructive bony process is seen. IMPRESSION: 1. Negative for acute bony trauma. 2. Mild DJD medial compartment. Electronically signed by Félix Sanders 08-11-2024 4:27 PM Shoulder X-Ray 08/11/24 15:22 Exam: Left shoulder Reason for exam: Patient fell FINDINGS: No acute fracture, dislocation or destructive bony process is noted. IMPRESSION: Negative for acute bony trauma left shoulder. Electronically signed by Félix Sanders 08-11-2024 4:29 PM ECG Additional Comments: [facility], [place] Electrocardiogram Report Signed Patient: LONNY HOPE Admit Date: 08/11/24 MR#: [id number] Att Phy: Acct ID: [id number] Samantha Phy: Chucho Mejia, III, [employer] Date: 1955 Fam Phy: Age: 69 Location: ED Sex: F Room/Bed: Legal Sex: F cc: ~ DICTATED BY: Tu Batista MD Test Reason : Blood Pressure : */* mmHG Vent. Rate : 49 BPM Atrial Rate : * BPM P-R Int : * ms QRS Dur : 146 ms QT Int : 526 ms P-R-T Axes : * 8 17 degrees QTcB Int : 475 ms Junctional rhythm Right bundle branch block Abnormal ECG When compared with ECG of 25-Jun-2022 12:59, Wide QRS rhythm has replaced Sinus rhythm Vent. rate has decreased by 38 bpm Confirmed by Tu Batista ([id number]) on 08/11/2024 8:47:52 PM Referred By: Confirmed By: Tu Batista PG Care Time/CCT Total # of Minutes Spent Total Time Spent with Patient: Total time spent is greater than 50% in coordination of care (as documented) at patient's floor/unit and/or counseling patient: Coding Level of Care Code 67028 INT INP/OBS CARE 375MIN Diagnoses Syncope R55 Bradycardia R00.1 Tremor R25.1 Type 2 diabetes mellitus with retinopathy of both eyes, with long-term current use of insulin, macular edema presence unspecified, unspecified retinopathy severity E11.319; Z79.4 Diabetes mellitus type: type 2 Diabetes mellitus halfway insulin use: with halfway use Diabetes mellitus complication status: with ophthalmic complications Diabetes mellitus complication detail: with diabetic retinopathy Diabetic retinopathy severity: with unspecified retinopathy severity Diabetes mellitus macular edema: macular edema presence unspecified Laterality: bilateral Hyperlipidemia E78.5 GERD (gastroesophageal reflux disease) K21.9 Anxiety and depression F41.9; F32.A COPD (chronic obstructive pulmonary disease) J44.9 (4) Diabetes Diabetes mellitus type: type 2 Diabetes mellitus joint terminal attack controller insulin use: with halfway use Diabetes mellitus complication status: with ophthalmic complications Diabetes mellitus complication detail: with diabetic retinopathy Diabetic retinopathy severity: with unspecified retinopathy severity Diabetes mellitus macular edema: macular edema presence unspecified Laterality: bilateral Qualified Code(s): E11.319 - Type 2 diabetes mellitus with unspecified diabetic retinopathy without macular edema; Z79.4 - terminal supervisor (current) use of insulin
[2024-08-11] MEDS: ACETAMINOPHEN 500 MG TAB PO STA (21:16)
[2024-08-11] MEDS ORDERED: GLUCAGON FOR INJ 1 MG VIAL SQ PRN (22:16)
[2024-08-11] MEDS ORDERED: DEXTROSE 50% 50 ML SYRINGE IV PRN (22:16)
[2024-08-11] MEDS ORDERED: GLUCOSE 10 TAB/TUBE PO PRN (22:16)
[2024-08-11] MEDS ORDERED: ALBUTEROL HFA 8 GM INHALER INH PRN (22:16)
[2024-08-11] MEDS ORDERED: GLUCOSE 40% GEL 15 GM TUBE PO PRN (22:16)
[2024-08-11] MEDS ORDERED: CARBOHYDRATES FOR HYPOGLYCEMIA PO PRN (22:16)
[2024-08-11 22:51] LABS: Thyroid Stimulating Hormone 1.081 uIu/ml (0.300-4.500)
[2024-08-11] MEDS: NORTRIPTYLINE HCL 25 MG CAP PO SCH (23:01)
[2024-08-11] MEDS: buPROPion SR 150 MG TABCR PO SCH (23:01)
[2024-08-11] MEDS: ROSUVASTATIN CALCIUM 5 MG TAB PO SCH (23:01)
[2024-08-11] MEDS: CALCIUM GLUCONATE 1,000 MG/60 ML BAG IV STA (23:01)
[2024-08-12] MEDS: ACETAMINOPHEN 500 MG TAB PO PRN (01:27)
[2024-08-12] MEDS: CELECOXIB 100 MG CAP PO PRN (04:44)
[2024-08-12 06:36] LABS: Hematocrit (blood only) 39.9 % (37.0-47.0); Hemoglobin 13.5 g/dl (12.0-16.0); Mean Corpuscular Hemoglobin 29.9 pg (25.0-34.0); Mean Corpuscular Hgb Conc 33.8 g/dL (32.0-36.0); Mean Corpuscular Volume 88.3 fL (80.0-100.0); Mean Platelet Volume 9.6 fL (9.4-12.4); Platelet Count 280 K/uL (130-400); RDW Coefficient of Variation 13.2 % (11.5-14.5); RDW Standard Deviation 42.5 fL (36.4-46.3); Red Blood Count 4.52 M/uL (4.20-5.40); White Blood Count 10.41 K/ul (4.8-10.8)
[2024-08-12] MEDS: PERFLUTREN LIPID MICROSPHERE (DEFINITY) IV ONE (07:01)
[2024-08-12 07:20] LABS: BUN Creatinine Ratio 18.6 (10-20); Calcium 8.9 mg/dl (8.6-10.3); Potassium 4.2 mmol/L (3.5-5.1)
--- NOTE | 2024-08-12 07:40 | Hospitalist Progress Note ---
Date of Service August 12, 2024 Assessment & Plan (1) Syncope: (2) Bradycardia: (3) Tremor: (4) Diabetes: (5) Hyperlipidemia: (6) GERD (gastroesophageal reflux disease): (7) Anxiety and depression: (8) COPD (chronic obstructive pulmonary disease): Plan 69-year-old female with history of hypertension, hyperlipidemia, diabetes, COPD and tremor presenting from home with 4 months of syncopal episodes increasing in frequency over the last week. Patient found to be in junctional bradycardia with rates in the 30s and 40s. Syncope Likely secondary to bradycardia arrhythmia vs hypoglycemia - Orthostatic vitals requested - Echocardiogram w/o systolic dysfunction, EF 55-60% - Cortisol, TSH, and Lyme negative - Extensive radiographic evaluation on presentation negative - Maintain on telemetry Bradycardia, Symptomatic - Echocardiogram as above - Electrolytes unremarkable - Discontinued propranolol - Cardiology evaluated patient and recommended permanent discontinuation of propranolol w/ subsequent washout period If patient remains bradycardic, consideration for pacemaker would be made Could consider primidone for essential tremor moving forward Diabetes - Hypoglycemic on arrival, now improved - A1c noted to be 7.6 on 03/20/24 - Insulin held d/t hypoglycemia - Follow BSGs - Ongoing Lisinopril 2.5 mg PO QAM - Ongoing Crestor 5 mg PO QPM for HLD GERD Continue Protonix 40 mg p.o. daily Anxiety and Depression Continue Bupropion 150 mg p.o. twice daily COPD - Air movement restricted on examination Patient denies cough, shortness of breath or wheeze Albuterol as needed F/E/N T2DM, no IVFs Prophylaxis SCDs to bilateral lower extremities CodeFull Disposition - PT/OT for falls following medical stabilization Admission and Anticipated Discharge Date Admission Date: August 11, 2024 Supervising Physician Co-Signing Physician Notes I personally examined the patient and verified frederick points of history and exam, discussed case, and agree with decision making and plan documented by Dr. Monroy. Patient is a 69-year-old female with history of essential tremor and COPD on admission for recurrent syncopal episodes in setting of bradycardia. Cardiology has evaluated patient and discontinue propranolol. Echocardiogram performed. Will monitor overnight on telemetry and consider pacemaker placement tomorrow. Patient reports elevated intraocular pressure of her right eye, she follows outpatient with ophthalmology, latanoprost drops ordered. Subjective Patient resting comfortably in bed upon morning evaluation, she denies any chest discomfort, palpitations, or dyspnea. She notes that she came into the hospital because she had been falling/having syncopal episodes at home which she had thought were related to her sugars. She notes that she still has some lingering pain in her left hip/greater trochanter since the fall at home. She is otherwise feeling well and denies headaches, vision changes, hearing change, or numbness/weakness in extremities. She denies fevers/chills and is not experiencing any bowel/bladder changes. Physical Exam Physical Exam: General: NAD, non-toxic, AO x 4 Skin: No rashes, lesions or erythema HEENT: NC/AT, no LAD or thyromegaly, MMM Heart: +S1/S2, regular, bradycardic, no m/r/g Lungs: non-labored, restricted air movement, no wheezing/rhonchi/rales Abd: +BS, soft, NT/ND, no masses/organomegaly/ascites Ext: 2+ distal pulses, no clubbing/cyanosis, trace edema of LE, significant TTP of left greater trochanter (no overlying ecchymosis or erythema present) Neuro: Strength and sensation intact, speech fluent Results & Data Results & Data Vital Signs (Past 12 Hours) Vital Signs Temp Pulse Pulse Resp BP BP Pulse Ox 08/12/24 07:13 36.4 C L 60 20 161/86 H 95 08/11/24 22:30 08/11/24 22:27 65 08/11/24 22:16 08/11/24 22:16 36.4 C L 45 L 17 120/54 L 96 08/11/24 22:15 36.4 C L 45 L 18 120/54 L 96 08/11/24 21:43 45 L 18 129/66 95 08/11/24 21:00 44 L 17 133/67 93 08/11/24 20:13 44 L 08/11/24 20:00 49 L 18 148/69 H 94 Pulse Ox O2 Del Method O2 Del Method 08/12/24 07:13 Room Air 08/11/24 22:30 Room Air 08/11/24 22:27 08/11/24 22:16 96 Room Air 08/11/24 22:16 Room Air 08/11/24 22:15 Room Air 08/11/24 21:43 Room Air 08/11/24 21:00 Room Air 08/11/24 20:13 08/11/24 20:00 Room Air Resident Activity Tracking Resident Involvement: Resident Care Provided Care Provided: Adult Hospital Medicine (4) Diabetes Diabetes mellitus complication detail: with diabetic retinopathy Diabetes mellitus complication status: with ophthalmic complications Diabetes mellitus meterman insulin use: with shelter use Diabetes mellitus macular edema: macular edema presence unspecified Diabetes mellitus type: type 2 Diabetic retinopathy severity: with unspecified retinopathy severity Laterality: bilateral Qualified Code(s): E11.319 - Type 2 diabetes mellitus with unspecified diabetic retinopathy without macular edema; Z79.4 - correction (current) use of insulin
[2024-08-12] MEDS: lisinopril 2.5 MG TAB PO SCH (08:35)
[2024-08-12] MEDS: PANTOprazole 40 MG TAB PO SCH (08:35)
--- NOTE | 2024-08-12 08:42 | XCELERA ---
[id number]
--- NOTE | 2024-08-12 12:44 | Cardiology Consultation ---
Date of Consultation August 12, 2024 Assessment & Plan (1) Bradycardia: (2) Junctional escape rhythm: (3) Syncope: (4) Essential tremor: 69-year-old woman on propranolol for essential tremor who has had recurrent presyncope/syncope and was found to have junctional escape rhythm and sinus bradycardia. Need to permanently discontinue propranolol, could try primidone as an alternative for her essential tremor. Allow for propranolol washout, heart rate does seem to be improving somewhat, however if she remains bradycardic pacemaker placement will need to be considered. No evidence of acute cardiac process, likely progressive conduction disease in the context of beta-aleta use has resulted in bradycardia with presyncope/syncope. Will continue to follow, decision regarding need for pacemaker should be more apparent by tomorrow. History of Present Illness Reason for Consultation: symptomatic bradycardia Requesting Physician: Cyndi Butler DO Attending Physician: Cyndi Butler DO History of Present Illness 69-year-old woman with COPD and multiple vascular risk factors (HTN, DM, dyslipidemia) but no prior cardiac history, who has experienced recurrent syncope and was noted to be markedly bradycardic upon admission yesterday. Patient lives alone. For the past 4 months she has had multiple episodes of orthostatic lightheadedness and presyncope with actual syncope several times. She has a prodrome of profuse diuresis (particularly of her head) followed by tunnel vision, with subsequent presyncope or syncope. At baseline she walks with a walker but denies any dyspnea exertion, orthopnea or PND, does have mild chronic ankle edema. She denies chest pain at any time. Her episodes of syncope have been increasing, prompting ER evaluation yesterday. She does note some discomfort of her knees and other areas that she struck upon falling, but no obvious or major trauma. Of note, she has been on propranolol chronically for benign essential tremor. This was discontinued upon admission. Cardiac findings: - ECG on admission showed junctional rhythm at 49 bpm with right bundle branch block. Compared with 06/25/2022 study, sinus rhythm no longer present and rate had decreased by 38 bpm. - Troponin normal (3.2). - Echocardiogram today showed EF 55 to 60% with moderate LVH and diastolic dysfunction, mild AI/moderate MR/moderate pulmonary hypertension. No prior study for comparison. - Telemetry overnight showed sinus bradycardia with rates as low as 39 bpm, heart rate seem to be improving this morning and was generally in the 50-60 bpm range. No heart block or pauses. At time of my evaluation this morning, she had some bilateral knee discomfort but otherwise felt well. Allergies Allergy/AdvReac Type Severity Reaction Status Date / Time pine nut Allergy Severe "evergreen Verified 08/11/24 18:27 sap" allergy, anaphylaxis salmon oil Allergy Severe ANAPHYLAXIS Verified 08/11/24 18:27 citalopram Allergy Intermediate Hives Verified 08/11/24 18:27 venlafaxine Allergy Intermediate Rash Verified 08/11/24 18:27 quetiapine Allergy Mild Rash Verified 08/11/24 18:27 latex Allergy Unknown TO POWDER Verified 08/11/24 18:27 W/ LATEX, JAK. NON-LATEX FREE IV'S [id number] ibuprofen AdvReac Mild "ABD Verified 08/11/24 18:27 DISTRESS" PINE SAP Allergy Severe Anaphylaxis Uncoded 08/11/24 18:27 metal Allergy Mild w/ Uncoded 08/11/24 18:27 prolonged exposure changes skin color and rash Home Medications Medication Instructions Recorded Confirmed Type pen needle, diabetic 31 gauge x #100 ea 07/03/22 07/28/24 Rx 3/16" (Pen Needle) blood-glucose meter (FilmLoopy #1 ea 07/15/22 07/28/24 Rx Autocode Meter kit) lancets 28 gauge (Prodigy Twist #100 ea 07/15/22 07/28/24 Rx Top Lancet) lidocaine 4 % topical patch 1 patch topical QID PRN Pain 08/24/22 08/11/24 History (Salonpas (lidocaine)) cholecalciferol (vitamin D3) 25 25 mcg PO DAILY 06/14/23 08/11/24 History mcg (1,000 unit) tablet (Vitamin D3) cyanocobalamin (vitamin B-12) 2,000 mcg PO DAILY 06/14/23 08/11/24 History 2,000 mcg tablet,extended release (Vitamin B-12 ER) magnesium 250 mg tablet 250 mg PO DAILY 06/14/23 08/11/24 History acetaminophen 500 mg tablet 1,000 mg PO TID PRN prn 07/22/23 08/11/24 History (Tylenol Extra Strength) esomeprazole magnesium 40 mg 40 mg PO DAILY Barretts esophagus 09/09/23 08/11/24 Rx capsule,delayed release (Nexium) #90 caps pen needle, diabetic 32 gauge x #100 ea 09/16/23 07/28/24 Rx 5/32" (Pen Needle) lisinopril 2.5 mg tablet 2.5 mg PO QAM #90 tabs 11/01/23 08/11/24 Rx celecoxib 100 mg capsule (Celebrex) 100 mg PO BID #180 caps 12/22/23 08/11/24 Rx blood sugar diagnostic (Prodigy No #100 ea 03/22/24 07/28/24 Rx Coding strips) bupropion HCl 150 mg tablet,12 hr 150 mg PO BID #180 ea 06/01/24 08/11/24 Rx sustained-release Wheeled Walker #1 ea 06/07/24 07/28/24 Rx albuterol sulfate 90 mcg/actuation 1 - 2 puff inhalation UD PRN 06/07/24 08/11/24 History aerosol inhaler (Ventolin HFA) shortness of breath or wheezing gabapentin 300 mg capsule 300 mg PO QID 06/07/24 08/11/24 History insulin NPH-regular 70-30 U-100 20 - 30 unit subcut UD 06/07/24 08/11/24 History insulin 100 unit/mL subcutaneous pen nortriptyline 50 mg capsule 50 mg PO QPM 06/07/24 08/11/24 History propranolol 20 mg tablet 60 mg PO QAM 06/07/24 08/11/24 History rosuvastatin 5 mg tablet 5 mg PO QPM 06/07/24 08/11/24 History galcanezumab-gnlm 120 mg/mL 240 mg subcut MONTHLY 08/11/24 08/11/24 History subcutaneous syringe (Emgality) propranolol 20 mg tablet 40 mg PO QPM 08/11/24 08/11/24 History Patient History Medical History Family history of reaction to anesthesia father difficulty waking History of falling Patient has fallen 5 times since 03/2024, most recently 05/17, 05/22, and 05/23, she feels she may have lost consciousness and hit her head, she fol lows with [facility], last visit 06/01/2024, she is to meet with a patient case manager, Brenna on 06/12/2024 regarding possible assisted living Legally blind Thoracic back pain Lumbar back pain with radiculopathy affecting left lower extremity Hyperlipidemia Migraines Diabetes Arthritis GERD (gastroesophageal reflux disease) Gastric intestinal metaplasia Essential tremor Barretts esophagus Anxiety and depression Diabetic neuropathy Diabetic retinopathy blind in right eye Hx of pneumococcal pneumonia resolved Pain management has started following w/ pain management clinic Hx of cardiac murmur does not follow w/ cardio, found as a child, no issues Awareness under anesthesia PTSD (post-traumatic stress disorder) HTN (hypertension) Stroke reports having stroke right eye; unsure when COPD (chronic obstructive pulmonary disease) rarely uses prn inahlers Surgical History S/P cataract surgery BOTH EYES 2022 Hx of colonoscopy Hx of excision of mass left knee; benign Hx of dilation of urethra History of endometrial ablation S/P lumpectomy, left breast H/O tubal ligation History of cholecystectomy Family History Mother Cancer Restless leg syndrome Grandfather (Maternal) Cancer Sister Cancer Neuropathy Stroke Congestive heart failure Daughter Breast cancer X2 Grandmother (Maternal) Myocardial infarction Grandmother (Paternal) Myocardial infarction Sister Myocardial infarction Denies family history of Ovarian cancer Prostate cancer Colorectal cancer Social History Smoking Status: Former smoker Tobacco Type: Cigarettes Age Started Using Tobacco: 16; Age Quit Using Tobacco: 68; packs per day: 1; Second Hand Exposure: No; Do You Dip or Chew Tobacco: No; Tobacco Cessation Education Requested by Patient: No Hx Alcohol Use: No Hx Substance Use: No Preferred Language: Hungarian Communication Ability: Effective Communication Ability Comment: legally blind, difficulty reading Visual Impairment: No Limitations Hearing Ability: Normal Huller Operator Required: No Beliefs That Will Affect Care: None marital status: Current Living Situation: Alone Current Living Situation Comment: apartment current occupational status: employed current occupation: [employer] How many Children do You have: 2 Other Information That Helps Us Care for You: No Feels Safe at Home: Yes Childhood Exposure to Second-Hand Smoke: Yes Diet: diabetic and low carbohydrate Diet Comment: low carb caffeine: No during the past year weight has: remained stable Dental Care, Regularly: No Physical Activity Frequency: 5-6 Times per Week Seatbelt Use: always Sunscreen Use: Yes Assistive Devices: Glasses and Walker Assistive Devices Comment: rollator at home Physical Exam Physical Exam: Elderly white female in no apparent distress. Afebrile. BP moderately hypertensive. Pulse 50 bpm and regular. Respirations 19 and unlabored. Skin: no ecchymoses or generalized lesions. HEENT: unremarkable. Neck: JVP at the clavicle at 90 degrees, no carotid bruits. Lungs: Mildly decreased breath sounds but generally clear. Cardiac: regular/bradycardic rhythm, normal S1-2, no murmur. Abdomen: benign. Extremities: Trace pretibial edema, pulses intact. Neurologic: normal affect and conversation, nonfocal. Results & Data Vital Signs (Past 12 Hours) Vital Signs Temp Pulse Pulse Resp BP Pulse Ox O2 Del Method 08/12/24 11:21 97.7 F 47 L 19 174/80 H 97 Room Air 08/12/24 10:35 42 L 08/12/24 10:29 Room Air 08/12/24 07:13 97.5 F L 60 20 161/86 H 95 Room Air Laboratory Results Normal CBC. Normal electrolytes, BUN 13, creatinine 0.7. Normal TSH. Diagnostic Findings Chest CT showed no pulmonary embolism, small right pleural effusion, stable right upper lobe nodule. PG Care Time/CCT Total # of Minutes Spent Total Time Spent with Patient: Total time spent is greater than 50% in coordination of care (as documented) at patient's floor/unit and/or counseling patient: Coding Level of Care Code 20243 IN/OBS CONSULT LVL 4,60M Diagnoses Bradycardia R00.1 Junctional escape rhythm I49.2 Syncope R55 Essential tremor G25.0
[2024-08-12] MEDS: LATANOPROST 0.005% OP SOLN 2.5 ML BTL OPR SCH (20:39)
[2024-08-12] MEDS: CYCLOBENZAPRINE HCL 5 MG TAB PO PRN (21:44)
[2024-08-13 06:55] LABS: Hemoglobin 12.8 g/dl (12.0-16.0); Mean Corpuscular Hemoglobin 29.4 pg (25.0-34.0); Mean Corpuscular Hgb Conc 33.7 g/dL (32.0-36.0); Mean Corpuscular Volume 87.4 fL (80.0-100.0); Mean Platelet Volume 9.6 fL (9.4-12.4); Platelet Count 279 K/uL (130-400); RDW Coefficient of Variation 13.2 % (11.5-14.5); RDW Standard Deviation 41.8 fL (36.4-46.3); Red Blood Count 4.35 M/uL (4.20-5.40); White Blood Count 9.78 K/ul (4.8-10.8)
[2024-08-13 07:10] LABS: BUN Creatinine Ratio 21.1 (10-20); Calcium 8.9 mg/dl (8.6-10.3); Creatinine Clr Calc Pharmacy 80.9 ml/min
--- NOTE | 2024-08-13 11:36 | Hospitalist Progress Note ---
Date of Service August 13, 2024 Assessment & Plan (1) Syncope: (2) Bradycardia: (3) Tremor: (4) Diabetes: (5) Hyperlipidemia: (6) GERD (gastroesophageal reflux disease): (7) Anxiety and depression: (8) COPD (chronic obstructive pulmonary disease): Plan 69-year-old female with history of hypertension, hyperlipidemia, diabetes, COPD and tremor presenting from home with 4 months of syncopal episodes increasing in frequency over the last week. Patient found to be in junctional bradycardia with rates in the 30s and 40s. Syncope Likely secondary to bradycardia - Orthostatic vitals were positive - Echocardiogram w/o systolic dysfunction, EF 55-60%, no structural heart abnormality - propranolol has been discontinued Essential Tremor Will stop Propranolol due to bradycardia Will urge patient to follow up with Neurologist to find an alternative, Primidone could be used Bradycardia, Symptomatic - Now resolved -Echocardiogram as above - Electrolytes unremarkable - Discontinued propranolol - Cardiology evaluated patient and recommended permanent discontinuation of propranolol w/ subsequent washout period Diabetes - Hypoglycemic on arrival, now improved - A1c noted to be 7.6 on 03/20/24 - Insulin held d/t hypoglycemia - Follow BSGs - Ongoing Lisinopril 2.5 mg PO QAM - Ongoing Crestor 5 mg PO QPM for HLD GERD Continue Protonix 40 mg p.o. daily Anxiety and Depression Continue Bupropion 150 mg p.o. twice daily COPD - Air movement restricted on examination Patient denies cough, shortness of breath or wheeze Albuterol as needed Awaiting PT eval, patient may benefit from SNF Admission and Anticipated Discharge Date Admission Date: August 11, 2024 Subjective patient seen and examined, no new complaints, but feels weak and tremulous Review of Systems Review of Systems: All systems reviewed are negative, apart from the ones contained in the history. Physical Exam Physical Exam: The patient is awake, alert and oriented 3, well developed and well nourished, normocephalic and atraumatic, lying in bed and in no acute distress. HEENT--PERRL, EOMI, mucous membranes and oropharynx mildly dry Neck--supple. No JVD. No bruits. Thyroid normal, trachea midline, no adenopathy. Heart--normal S1 and S2. No murmurs, rubs or gallops. Lungs--clear bilaterally, no respiratory distress, no accessory muscle use. Abdomen--normal bowel sounds and soft. Extremities--no cyanosis or clubbing. No edema. Dermatologic--normal skin turgor, normal color, no abnormal lymph nodes, no rash. Neurologic--cranial nerves II through XII grossly intact. Rheumatologic--normal range of motion. Psychiatric--normal affect. Results & Data Results & Data Vital Signs (Past 12 Hours) Vital Signs Temp Pulse Resp BP Pulse Ox O2 Del Method 08/13/24 10:33 98.1 F 87 19 149/81 H 98 Room Air 08/13/24 08:28 Room Air 08/13/24 07:43 97.5 F L 81 20 170/72 H 96 Room Air 08/13/24 03:32 97.3 F L 86 18 136/73 97 Room Air 08/12/24 23:41 97.9 F 81 18 157/63 H 97 Room Air PG Care Time/CCT Total # of Minutes Spent Total Time Spent with Patient: Total time spent is greater than 50% in coordination of care (as documented) at patient's floor/unit and/or counseling patient: Coding Level of Care Code 34055 SUB INP/OBS CARE 2/35MIN Diagnoses Syncope R55 Bradycardia R00.1 Tremor R25.1 Type 2 diabetes mellitus with retinopathy of both eyes, with long-term current use of insulin, macular edema presence unspecified, unspecified retinopathy severity E11.319; Z79.4 Diabetes mellitus type: type 2 Diabetes mellitus intermediate insulin use: with intermediate use Diabetes mellitus complication status: with ophthalmic complications Diabetes mellitus complication detail: with diabetic retinopathy Diabetic retinopathy severity: with unspecified retinopathy severity Diabetes mellitus macular edema: macular edema presence unspecified Laterality: bilateral Hyperlipidemia E78.5 GERD (gastroesophageal reflux disease) K21.9 Anxiety and depression F41.9; F32.A COPD (chronic obstructive pulmonary disease) J44.9 Time Spent (min) 35 (4) Diabetes Diabetes mellitus type: type 2 Diabetes mellitus intermediate insulin use: with intermediate use Diabetes mellitus complication status: with ophthalmic complications Diabetes mellitus complication detail: with diabetic retinopathy Diabetic retinopathy severity: with unspecified retinopathy severity Diabetes mellitus macular edema: macular edema presence unspecified Laterality: bilateral Qualified Code(s): E11.319 - Type 2 diabetes mellitus with unspecified diabetic retinopathy without macular edema; Z79.4 - snf (current) use of insulin
--- NOTE | 2024-08-13 11:37 | Cardiology Progress Note ---
Date of Service August 13, 2024 Assessment & Plan (1) Bradycardia: (2) Junctional escape rhythm: (3) Syncope: (4) Essential tremor: Plan 69-year-old woman on propranolol for essential tremor who has had recurrent presyncope/syncope and was found to have junctional escape rhythm and sinus bradycardia. Remain off propranolol. Consider primidone as alternative for essential tremor becomes symptomatic/bothersome. Heart rate improved off propranolol, no indication for pacemaker at this time. Increase activity as able, in the absence of evidence for chronotropic incompetence during activity or the recurrence of presyncope/syncope, no further workup necessary at this time. Will sign off cardiology, please contact me if there are any cardiology issues later today or Dr. Rae if issues arise tomorrow. Admission and Anticipated Discharge Date Admission Date: August 11, 2024 Subjective Uneventful night. Doing well, denies chest pain, dyspnea, palpitations, or lightheadedness. Telemetry showed improving heart rate, generally 60-80 overnight and up to 90 bpm this morning. Physical Exam Physical Exam: No distress. Mildly hypertensive. Pulse 90 bpm and regular. Respirations 19 and unlabored. Skin: no ecchymoses or generalized lesions. HEENT: unremarkable. Neck: JVP at the clavicle at 90 degrees, no carotid bruits. Lungs: Mildly decreased breath sounds but generally clear. Cardiac: regular rhythm, normal S1-2, no murmur. Abdomen: benign. Extremities: Trace pretibial edema, pulses intact. Neurologic: normal affect and conversation, nonfocal. Results & Data Vital Signs (Past 12 Hours) Vital Signs Temp Pulse Resp BP Pulse Ox O2 Del Method 08/13/24 10:33 98.1 F 87 19 149/81 H 98 Room Air 08/13/24 08:28 Room Air 08/13/24 07:43 97.5 F L 81 20 170/72 H 96 Room Air 08/13/24 03:32 97.3 F L 86 18 136/73 97 Room Air 08/12/24 23:41 97.9 F 81 18 157/63 H 97 Room Air Laboratory Results Normal electrolytes, BUN 15, creatinine 0.71. PG Care Time/CCT Total # of Minutes Spent Total Time Spent with Patient: Total time spent is greater than 50% in coordination of care (as documented) at patient's floor/unit and/or counseling patient: Coding Level of Care Code 14882 SUB INP/OBS CARE 235MIN Diagnoses Bradycardia R00.1 Junctional escape rhythm I49.2 Syncope R55 Essential tremor G25.0
[2024-08-14 06:23] LABS: Hematocrit (blood only) 41.4 % (37.0-47.0); Hemoglobin 13.8 g/dl (12.0-16.0); Mean Corpuscular Hemoglobin 29.2 pg (25.0-34.0); Mean Corpuscular Hgb Conc 33.3 g/dL (32.0-36.0); Mean Corpuscular Volume 87.7 fL (80.0-100.0); Mean Platelet Volume 9.4 fL (9.4-12.4); Platelet Count 296 K/uL (130-400); RDW Coefficient of Variation 13.2 % (11.5-14.5); RDW Standard Deviation 41.9 fL (36.4-46.3); Red Blood Count 4.72 M/uL (4.20-5.40); White Blood Count 8.21 K/ul (4.8-10.8)
[2024-08-14 06:53] LABS: BUN Creatinine Ratio 20.3 (10-20); Calcium 9.2 mg/dl (8.6-10.3); Creatinine Clr Calc Pharmacy 77.1 ml/min
--- NOTE | 2024-08-14 11:21 | Hospitalist Progress Note ---
Date of Service August 14, 2024 Assessment & Plan (1) Syncope: (2) Bradycardia: (3) Tremor: (4) Diabetes: (5) Hyperlipidemia: (6) GERD (gastroesophageal reflux disease): (7) Anxiety and depression: (8) COPD (chronic obstructive pulmonary disease): Plan 69-year-old female with history of hypertension, hyperlipidemia, diabetes, COPD and tremor presenting from home with 4 months of syncopal episodes increasing in frequency over the last week. Patient found to be in junctional bradycardia with rates in the 30s and 40s. Syncope Likely secondary to bradycardia - Orthostatic vitals were positive - Echocardiogram w/o systolic dysfunction, EF 55-60%, no structural heart abnormality - propranolol has been discontinued Essential Tremor Will stop Propranolol due to bradycardia Will urge patient to follow up with Neurologist to find an alternative, Primidone could be used Bradycardia, Symptomatic - Now resolved -Echocardiogram as above - Electrolytes unremarkable - Discontinued propranolol - Cardiology evaluated patient and recommended permanent discontinuation of propranolol w/ subsequent washout period Diabetes - Hypoglycemic on arrival, now improved - A1c noted to be 7.6 on 03/20/24 - Insulin held d/t hypoglycemia - Follow BSGs - Ongoing Lisinopril 2.5 mg PO QAM - Ongoing Crestor 5 mg PO QPM for HLD GERD Continue Protonix 40 mg p.o. daily Anxiety and Depression Continue Bupropion 150 mg p.o. twice daily COPD - Air movement restricted on examination Patient denies cough, shortness of breath or wheeze Albuterol as needed Awaiting PT eval, patient may benefit from SNF Admission and Anticipated Discharge Date Admission Date: August 11, 2024 Subjective patient seen and examined, sitting up in the chair, no new complaints Review of Systems Review of Systems: All systems reviewed are negative, apart from the ones contained in the history. Physical Exam Physical Exam: The patient is awake, alert and oriented 3, well developed and well nourished, normocephalic and atraumatic, lying in bed and in no acute distress. HEENT--PERRL, EOMI, mucous membranes and oropharynx mildly dry Neck--supple. No JVD. No bruits. Thyroid normal, trachea midline, no adenopathy. Heart--normal S1 and S2. No murmurs, rubs or gallops. Lungs--clear bilaterally, no respiratory distress, no accessory muscle use. Abdomen--normal bowel sounds and soft. Extremities--no cyanosis or clubbing. No edema. Dermatologic--normal skin turgor, normal color, no abnormal lymph nodes, no rash. Neurologic--cranial nerves II through XII grossly intact. Rheumatologic--normal range of motion. Psychiatric--normal affect. Results & Data Results & Data Vital Signs (Past 12 Hours) Vital Signs Temp Pulse Pulse Resp BP Pulse Ox O2 Del Method 08/14/24 09:04 110 H 08/14/24 07:55 97.9 F 92 H 16 141/84 H 95 Room Air 08/14/24 07:38 Room Air 08/14/24 03:05 97.5 F L 111 H 16 125/66 96 Room Air PG Care Time/CCT Total # of Minutes Spent Total Time Spent with Patient: Total time spent is greater than 50% in coordination of care (as documented) at patient's floor/unit and/or counseling patient: Coding Level of Care Code 78718 SUB INP/OBS CARE 2/35MIN Diagnoses Syncope R55 Bradycardia R00.1 Tremor R25.1 Type 2 diabetes mellitus with retinopathy of both eyes, with long-term current use of insulin, macular edema presence unspecified, unspecified retinopathy severity E11.319; Z79.4 Diabetes mellitus type: type 2 Diabetes mellitus care home insulin use: with terminal make up operator use Diabetes mellitus complication status: with ophthalmic complications Diabetes mellitus complication detail: with diabetic retinopathy Diabetic retinopathy severity: with unspecified retinopathy severity Diabetes mellitus macular edema: macular edema presence unspecified Laterality: bilateral Hyperlipidemia E78.5 GERD (gastroesophageal reflux disease) K21.9 Anxiety and depression F41.9; F32.A COPD (chronic obstructive pulmonary disease) J44.9 Time Spent (min) 35 (4) Diabetes Diabetes mellitus type: type 2 Diabetes mellitus terminal make up operator insulin use: with care home use Diabetes mellitus complication status: with ophthalmic compl ications Diabetes mellitus complication detail: with diabetic retinopathy Diabetic retinopathy severity: with unspecified retinopathy severity Diabetes mellitus macular edema: macular edema presence unspecified Laterality: bilateral Qualified Code(s): E11.319 - Type 2 diabetes mellitus with unspecified diabetic retinopathy without macular edema; Z79.4 - terminal operator (current) use of insulin
[2024-08-15 10:40] VITALS: BP 106/74; PULSE 102; RESP 19; TEMP 97.5; O2SAT 93
--- NOTE | 2024-08-15 11:32 | Discharge Summary ---
Date of Service August 15, 2024 Admission HPI Per Admitting Provider Arabella Mane is a 69-year-old female with history of hypertension, hyperlipidemia, GERD, COPD and tremor presenting with multiple episodes of syncope occurring today. Also reports a syncopal episode on 08/06/2024 and 08/08/2024. These episodes however, have been going on intermittently since the end of March 2024. They have increased in frequency since that time and specifically over the last week. Patient reports that her episodes frequently occur after she stands. She becomes diaphoretic, feels "uncomfortable" then passes out. She has had episodes where his she has been out for 20 to 30 minutes at a time. Episodes are unwitnessed as patient lives alone. She denies chest pain, palpitations, shortness of breath, nausea, vomiting preceding or following the events. She has never had evidence of tongue biting or incontinence. She does report some mild edema at the ankle otherwise denies shortness of breath, orthopnea, weight gain. No additional complaints at this time. Upon review of telemetry in the ER patient appears to be in sinus bradycardia with episodes of junctional bradycardia (rates 30s to 40s). Daughter is at bedside and reports that when patient's heart rate dips into the 30s patient seems to become less responsive with a blank stare. ER course: Tylenol 1 g p.o. Admission Exam (Per Admitting) Constitutional The patient is awake, alert and oriented 3, well developed and well nourished, normocephalic and atraumatic, lying in bed and in no acute distress. HEENT--PERRL, EOMI, mucous membranes and oropharynx mildly dry Neck--supple. No JVD. No bruits. Thyroid normal, trachea midline, no adenopathy. Heart--normal S1 and S2. No murmurs, rubs or gallops. Lungs--clear bilaterally, no respiratory distress, no accessory muscle use. Abdomen--normal bowel sounds and soft. Extremities--no cyanosis or clubbing. No edema. Dermatologic--normal skin turgor, normal color, no abnormal lymph nodes, no rash. Neurologic--cranial nerves II through XII grossly intact. Rheumatologic--normal range of motion. Psychiatric--normal affect. Discharge Data Consultations 08/11/24 20:02 ED Decision to Admit Stat 08/11/24 20:54 Consult Cardiology Routine Hospital Course (1) Syncope: (2) Bradycardia: (3) Tremor: (4) Diabetes: (5) Hyperlipidemia: (6) GERD (gastroesophageal reflux disease): (7) Anxiety and depression: (8) COPD (chronic obstructive pulmonary disease): Plan 69-year-old female with history of hypertension, hyperlipidemia, diabetes, COPD and tremor presenting from home with 4 months of syncopal episodes increasing in frequency over the last week. Patient found to be in junctional bradycardia with rates in the 30s and 40s. Syncope Likely secondary to bradycardia - Orthostatic vitals were positive - Echocardiogram w/o systolic dysfunction, EF 55-60%, no structural heart abnormality - propranolol has been discontinued Essential Tremor Will stop Propranolol due to bradycardia Will urge patient to follow up with Neurologist to find an alternative, Primidone could be used Bradycardia, Symptomatic - Now resolved -Echocardiogram as above - Electrolytes unremarkable - Discontinued propranolol - Cardiology evaluated patient and recommended permanent discontinuation of propranolol w/ subsequent washout period Diabetes - Hypoglycemic on arrival, now improved - A1c noted to be 7.6 on 03/20/24 - Insulin held d/t hypoglycemia - Follow BSGs - Ongoing Lisinopril 2.5 mg PO QAM - Ongoing Crestor 5 mg PO QPM for HLD GERD Continue Protonix 40 mg p.o. daily Anxiety and Depression Continue Bupropion 150 mg p.o. twice daily COPD - Air movement restricted on examination Patient denies cough, shortness of breath or wheeze Albuterol as needed discharge home with home health and PT Coding Level of Care Code 43822 INP/OBS DISCH >30 MIN Diagnoses Syncope R55 Bradycardia R00.1 Tremor R25.1 Type 2 diabetes mellitus with retinopathy of both eyes, with long-term current use of insulin, macular edema presence unspecified, unspecified retinopathy severity E11.319; Z79.4 Diabetes mellitus type: type 2 Diabetes mellitus intermediate accountant insulin use: with intermediate accountant use Diabetes mellitus complication status: with ophthalmic complications Diabetes mellitus complication detail: with diabetic retinopathy Diabetic retinopathy severity: with unspecified retinopathy severity Diabetes mellitus macular edema: macular edema presence unspecified Laterality: bilateral Hyperlipidemia E78.5 GERD (gastroesophageal reflux disease) K21.9 Anxiety and depression F41.9; F32.A COPD (chronic obstructive pulmonary disease) J44.9 Time Spent (min) 35
== END 2024-08-15 13:11 | disposition home health service (06) | DRG 310 ==
LOC: ED 14:51 → SUATTDRO 20:54 → EDINP 20:54 → 2S 21:43